=== PATIENT | female | born 1990 | race Two or more races ===

== ENCOUNTER 2016-06-07 19:51 | Emergency (ER) | payer BC ==
[~2016-06-07] VITALS: Ht 162.6 cm; Wt 72.6 kg
[~2016-06-07 19:51] MED LIST: METH-37 PO; TRAM-29 PO
[2016-06-07 20:30] LABS: BILIRUBIN,URINE NEGATIVE (NEG); GLUCOSE,URINE NEGATIVE (NEG); NITRITE,URINE NEGATIVE (NEG); PH,URINE 5.5; PROTEIN,URINE NEGATIVE (NEG-TRACE); UROBILINOGEN,URINE 0.2 mg/dL (0.2 mg/dL)
[2016-06-07 20:44] LABS: RBC,URINE OCC /HPF (0-2)
[2016-06-07 20:45] LABS: BACTERIA,URINE MANY /HPF (0-FEW); SQUAMOUS EPITHELIAL CELL,UR MANY /LPF; WBC,URINE 20-40 /HPF (0-4)
[2016-06-07] MEDS ORDERED: FENTANYL PF 100 MCG/2 ML VIAL. IV ONE ×2 (20:45→22:30)
[2016-06-07] MEDS ORDERED: IV NORMAL SALINE 1000ML BAG 1,000 ML IV ONE (20:45)
[2016-06-07 20:54] LABS: BASO % 0 % (0-3); EOS % 3 % (0-3); HEMATOCRIT 46.4 % (36.0-47.0); HEMOGLOBIN 15.3 g/dL (12.0-15.5); LYMPH # 5.2 x10^3/uL (1.0-4.8); LYMPH % 38 % (24-48); MEAN CORPUSCULAR HEMOGLOBIN 29 pg (25-35); MEAN CORPUSCULAR HGB CONC 33 g/dL (31-37); MEAN CORPUSCULAR VOLUME 87 fL (79-100); MONO % 9 % (0-9); NEUT % 51 % (31-73); PLATELET COUNT 480 x10^3/uL (140-400); RED BLOOD COUNT 5.36 x10^6/uL (3.50-5.40); RED CELL DISTRIBUTION WIDTH 13.7 % (11.5-14.5); WHITE BLOOD COUNT 13.8 x10^3/uL (4.0-11.0)
--- NOTE | 2016-06-07 20:58 | PHYS DOC ---
Past Medical History Past Medical History: No Pertinent History Additional Past Medical Histor: scolosis; bulging discs Past Surgical History: Appendectomy Alcohol Use: Occasionally Drug Use: None Adult General Chief Complaint Chief Complaint: ABDOMINAL PAIN HPI HPI 26-year-old female with acute onset of left lower quadrant pain just prior to arrival. Patient states she was having ongoing diarrheal illness last evening. She denies any nausea or vomiting. She rates her pain in the left lower quadrant a 9 out of 10. She has history of appendectomy but no other abdominal surgery. She denies any vaginal bleeding or discharge. She denies any hematuria or dysuria. Review of Systems Review of Systems Constitutional: Denies fever or chills [] Eyes: Denies change in visual acuity, redness, or eye pain [] HENT: Denies nasal congestion or sore throat [] Respiratory: Denies cough or shortness of breath [] Cardiovascular: No additional information not addressed in HPI [] GI: Has abdominal pain, denies nausea, denies vomiting, denies bloody stools, has diarrhea [] : Denies dysuria or hematuria [] Musculoskeletal: Denies back pain or joint pain [] Integument: Denies rash or skin lesions [] Neurologic: Denies headache, focal weakness or sensory changes [] Endocrine: Denies polyuria or polydipsia [] Current Medications Current Medications Current Medications Medications (Trade) Dose Ordered Sig/Le Start Time Stop Time Status Last Admin Dose Admin Ceftriaxone Sodium (Rocephin 1gm Ivpb For Omni) 50 ml @ 100 mls/hr 1X ONCE 06/07/16 23:00 06/07/16 23:29 DC 06/07/16 23:35 100 MLS/HR Fentanyl Citrate (Fentanyl 2ml Vial) 50 mcg 1X ONCE 06/07/16 22:30 06/07/16 22:31 DC 06/07/16 22:30 50 MCG Info 1 each 1 each PRN DAILY PRN 06/07/16 22:30 06/09/16 22:29 Iohexol (Omnipaque 300 Mg/ml) 75 ml 1X ONCE 06/07/16 22:30 06/07/16 22:31 DC 06/07/16 23:09 75 ML Sodium Chloride (Iv Sodium Chloride 0.9% 1000ml Bag) 1,000 ml @ 1,000 mls/hr 1X ONCE 06/07/16 20:45 06/07/16 21:44 DC 06/07/16 20:58 1,000 MLS/HR Allergies Allergies Allergies Coded Allergies Type Severity Reaction Last Updated Verified Penicillins Allergy Intermediate rash 01/30/16 Yes Physical Exam Physical Exam Constitutional: Well developed, well nourished, no acute distress, non-toxic appearance. [] HENT: Normocephalic, atraumatic, bilateral external ears normal, oropharynx moist, no oral exudates, nose normal. [] Eyes: PERRLA, EOMI, conjunctiva normal, no discharge. [] Neck: Normal range of motion, no tenderness, supple, no stridor. [] Cardiovascular:Heart rate regular rhythm, no murmur [] Lungs & Thorax: Bilateral breath sounds clear to auscultation [] Abdomen: Bowel sounds normal, soft, moderate LLQ tenderness, no masses, no pulsatile masses. [] Skin: Warm, dry, no erythema, no rash. [] Back: No tenderness, no CVA tenderness. [] Extremities: No tenderness, no cyanosis, no clubbing, ROM intact, no edema. [] Neurologic: Alert and oriented X 3, normal motor function, normal sensory function, no focal deficits noted. [] Psychologic: Affect normal, judgement normal, mood normal. [] Current Patient Data Vital Signs Vital Signs Date Time Temp Pulse Resp B/P Pulse Ox O2 Delivery O2 Flow Rate FiO2 06/07/16 22:46 112 17 119/79 98 Room Air 06/07/16 19:58 97.4 97.4 Lab Values Laboratory Tests Test 06/07/16 19:55 06/07/16 20:01 Urine Collection Type Unknown Urine Color Yellow Urine Clarity Cloudy Urine pH 5.5 Urine Specific [place] >=1.030 Urine Protein Negativemg/dL (NEG-TRACE) Urine Glucose (UA) Negativemg/dL (NEG) Urine Ketones (Stick) Negativemg/dL (NEG) Urine Blood Trace (NEG) Urine Nitrite Negative (NEG) Urine Bilirubin Negative (NEG) Urine Urobilinogen Dipstick 0.2mg/dL (0.2 mg/dL) Urine Leukocyte Esterase Large (NEG) Urine RBC Occ/HPF (0-2) Urine WBC 20-40/HPF (0-4) Urine Squamous Epithelial Cells Many/LPF Urine Bacteria Many/HPF (0-FEW) Urine Mucus Marked/LPF White Blood Count 13.8x10^3/uL (4.0-11.0) H Red Blood Count 5.36x10^6/uL (3.50-5.40) Hemoglobin 15.3g/dL (12.0-15.5) Hematocrit 46.4% (36.0-47.0) Mean Corpuscular Volume 87fL (79-100) Mean Corpuscular Hemoglobin 29pg (25-35) Mean Corpuscular Hemoglobin Concent 33g/dL (31-37) Red Cell Distribution Width 13.7% (11.5-14.5) Platelet Count 480x10^3/uL (140-400) H Neutrophils (%) (Auto) 51% (31-73) Lymphocytes (%) (Auto) 38% (24-48) Monocytes (%) (Auto) 9% (0-9) Eosinophils (%) (Auto) 3% (0-3) Basophils (%) (Auto) 0% (0-3) Neutrophils # (Auto) 7.0x10^3uL (1.8-7.7) Lymphocytes # (Auto) 5.2x10^3/uL (1.0-4.8) H Monocytes # (Auto) 1.2x10^3/uL (0.0-1.1) H Eosinophils # (Auto) 0.3x10^3/uL (0.0-0.7) Basophils # (Auto) 0.0x10^3/uL (0.0-0.2) Sodium Level 139mmol/L (136-145) Potassium Level 3.4mmol/L (3.5-5.1) L Chloride Level 102mmol/L (98-107) Carbon Dioxide Level 27mmol/L (21-32) Anion Gap 10 (6-14) Blood Urea Nitrogen 10mg/dL (7-20) Creatinine 0.8mg/dL (0.6-1.0) Estimated GFR (Cockcroft-Gault) 86.0 Glucose Level 69mg/dL (70-99) L Calcium Level 9.4mg/dL (8.5-10.1) Laboratory Tests 06/07/16 20:01 Laboratory Tests 06/07/16 20:01 EKG EKG [] Radiology/Procedures Radiology/Procedures CT of the abdomen/pelvis with IV contrast demonstrates the following: No evidence of bowel obstruction or hydronephrosis. Probable nonobstructive right renal stone. Low-attenuation lesions within the right greater than left kidney. Incompletely characterized on this exam. Ultrasound could be helpful to further evaluate to ensure that there is no complex component. Course & Med Decision Making Course & Med Decision Making Pertinent Labs and Imaging studies reviewed. (See chart for details) This 26-year-old female with ongoing left lower quadrant pain will receive a pelvic ultrasound to rule out ovarian torsion. I also obtain IV line and lab to rule out any other acute cause I will be providing her an IV fluid bolus for her ongoing diarrheal illness to rehydrate her and IV fentanyl for her pain. If her pelvic ultrasound is unrevealing I will be also be obtaining a CT scan to rule out any other acute abnormality. At this time the differential is likely ovarian versus diverticulitis versus colitis. Her CT scan does not reveal any acute abnormalities. Patient upon my reassessment has still continued pain in the left lower quadrant after multiple doses of IV fentanyl. A dose of IV rocephin was given for her UTI. I will be discharging her with a course of ciprofloxacin and flagyl to cover for any diverticulitis and her ongoing UTI. I will also be prescribing her a course of pain control and nausea meds. She will follow closely with her primary doctor in the next several days for symptom resolution. Dragon Disclaimer Dragon Disclaimer This electronic medical record was generated, in whole or in part, using a voice recognition dictation system. Departure Departure Impression: Primary Impression: Left lower quadrant abdominal tenderness Disposition: 01 HOME, SELF-CARE Admitting Physician: Other Condition: IMPROVED Referrals: AILYN HUSAIN MD (PCP) Patient Instructions: Abdominal Pain, [id number] Additional Instructions: Please follow up with your primary doctor in the next 2-3 days. Take your antibiotics as prescribed. Return to the ER if you develop any worsening of your symptoms. Scripts Ondansetron Hcl (Zofran)4 Mg Tablet4 Mg PO BID PRN NAUSEA/VOMITING #10 TAB Prov:FERNANDO MILNER DO 06/08/16 Hydrocodone/Apap 5-325 (Blair 5-325 Tablet)1 Each Tablet1 Tab PO PRN Q6HRS PRN PAIN #10 TAB Prov:FERNANDO MILNER DO 06/08/16 Metronidazole (Flagyl)500 Mg Tablet1 Tab PO BID #14 TAB Prov:FERNANDO MILNER DO 06/08/16 Ciprofloxacin Hcl (Cipro)500 Mg Tablet1 Tab PO BID #14 TAB Prov:FERNANDO MILNER DO 06/08/16 FERNANDO MILNER DO Jun 07, 2016 20:58
[2016-06-07 21:08] LABS: CALCIUM 9.4 mg/dL (8.5-10.1); CREATININE 0.8 mg/dL (0.6-1.0); POTASSIUM 3.4 mmol/L (3.5-5.1)
--- NOTE | 2016-06-07 21:33 | RAD ---
Pelvis ultrasound with transvaginal Indication: Left lower quadrant pain. Transabdominal and transvaginal pelvic sonography was performed. The uterus measures 6.6 x 4.1 x 3.5 centimeters. The endometrium is 6 millimeters in thickness. No uterine mass is detected. Patient does have an IUD centered within the endometrium. The right ovary measures 2.9 x 1.6 x 1.4 centimeters and the left ovary measures 2.7 x 1.1 x 1.0 centimeters. There are small follicles bilaterally. There appears to be blood flow to both ovaries. No adnexal mass or free fluid is detected. Impression: Unremarkable transabdominal and transvaginal pelvic ultrasound. Electronically signed by: Elijah Pollock MD (Jun 07, 2016 21:32:05)
[2016-06-07] MEDS ORDERED: CONTRAST GIVEN MC PRN (22:30)
[2016-06-07] MEDS ORDERED: IOHEXOL 300 MG/ML 75 ML VIAL IV ONE (22:30)
[2016-06-07] MEDS ORDERED: CEFTRIAXONE 1GM IVPB FOR OMNI 50 ML IV ONE (23:00)
--- NOTE | 2016-06-08 00:13 | RAD ---
INDICATION: Abdomen pain. COMPARISON: None TECHNIQUE: Axial CT images obtained through the abdomen and pelvis. Intravenous contrast was utilized. One or more of the following individualized dose reduction techniques were utilized for this examination: 1. Automated exposure control; 2. Adjustment of the mA and/or kV according to patient size; 3. Use of iterative reconstruction technique. FINDINGS: Abdominal aorta not aneurysmal. Small hiatal hernia. No intrahepatic bile duct dilation. No peripancreatic edema. Spleen unremarkable. No hydronephrosis. Subcentimeter low-attenuation lesion left kidney. 15 millimeter low-attenuation lesion right kidney. 2 millimeter possible right renal nonobstructive stone. No definite evidence of small bowel obstruction. Bladder unremarkable within limits of CT. Intrauterine device. IMPRESSION: No evidence of bowel obstruction or hydronephrosis. Probable nonobstructive right renal stone. Low-attenuation lesions within the right greater than left kidney. Incompletely characterized on this exam. Ultrasound could be helpful to further evaluate to ensure that there is no complex component. Electronically signed by: Urban Benitez (Jun 08, 2016 00:12:08)
[2016-06-08] MEDS ORDERED: CIPR500T94 PO (00:29)
[2016-06-08] MEDS ORDERED: METR500T PO (00:29)
[2016-06-08] MEDS ORDERED: HYDR-971 PO (00:31)
[2016-06-08] MEDS ORDERED: ONDA4TAB7 PO (00:31)
[2016-06-08 00:32] VITALS: BP 113/66
== END 2016-06-08 00:40 | disposition home or self-care (01) ==
LOC: ER 19:51
DX: R10.32 Left lower quadrant pain (principal); R19.7 Diarrhea, unspecified; Z90.49 Acquired absence of other specified parts of digestive tract; Z88.0 Allergy status to penicillin
CPT/HCPCS: 36415; 74177; 76830; 76856; 80048; 81001; 85027; 87086; 96361; 96365; 96375; 96376; 99285; J0690; J3010; J7030; Q9967

== ENCOUNTER 2016-06-17 16:30 | Inpatient (IN) | payer BC ==
[~2016-06-17] VITALS: Ht 162.6 cm; Wt 79.6 kg
[~2016-06-17 16:30] MED LIST changes: +CIPR500T94 PO; +HYDR-971 PO; +METR500T PO; +ONDA4TAB7 PO
[2016-06-17] MEDS ORDERED: IV NORMAL SALINE 1000ML BAG 1,000 ML IV SCH (18:12)
[2016-06-17] MEDS ORDERED: ONDANSETRON PF 4 MG/2 ML VIAL. IV ONE ×2 (18:15→19:30)
[2016-06-17 18:29] LABS: BASO # 0.1 x10^3/uL (0.0-0.2); BASO % 0 % (0-3); EOS % 1 % (0-3); HEMATOCRIT 46.3 % (36.0-47.0); HEMOGLOBIN 15.7 g/dL (12.0-15.5); LYMPH # 0.8 x10^3/uL (1.0-4.8); LYMPH % 6 % (24-48); MEAN CORPUSCULAR HEMOGLOBIN 28 pg (25-35); MEAN CORPUSCULAR HGB CONC 34 g/dL (31-37); MEAN CORPUSCULAR VOLUME 83 fL (79-100); MONO % 3 % (0-9); NEUT % 89 % (31-73); PLATELET COUNT 411 x10^3/uL (140-400); RED BLOOD COUNT 5.56 x10^6/uL (3.50-5.40); WHITE BLOOD COUNT 13.6 x10^3/uL (4.0-11.0)
[2016-06-17] MEDS ORDERED: ACETAMINOPHEN 500 MG TABLET PO ONE (18:30)
[2016-06-17] MEDS ORDERED: IOHEXOL 300 MG/ML 75 ML VIAL IV ONE (18:30)
[2016-06-17 18:38] LABS: CALCIUM 8.9 mg/dL (8.5-10.1); CREATININE 0.7 mg/dL (0.6-1.0); GFR 100.4; POTASSIUM 3.9 mmol/L (3.5-5.1)
[2016-06-17 18:43] LABS: ALBUMIN 3.7 g/dL (3.4-5.0); ALBUMIN/GLOBULIN RATIO 0.8 (1.0-1.7); TOTAL BILIRUBIN 0.3 mg/dL (0.2-1.0); TOTAL PROTEIN 8.2 g/dL (6.4-8.2)
[2016-06-17] MEDS: FENTANYL PF 100 MCG/2 ML VIAL. IV PRN ×4 (18:43→20:55)
--- NOTE | 2016-06-17 18:47 | EKG ---
[facility] [address] [place] [address] Test Date: 2016-06-17 Test Time: 18:25:02 Pat Name: ZAHRA PEREZ Department: Room: Gender: Female [employer] Tender: : 1990 Requested By: SANNA ALEXANDRA Order Number: [id number] Reading MD: Shira Cesar Measurements Intervals [place] Rate: 154 P: [place]: QRS: 41 QRSD: 68 T: 61 QT: 296 QTc: 477 Interpretive Statements SINUS TACHYCARDIA NO SPECIFIC ECG ABNORMALITIES RI6.01 No previous ECG available for comparison Electronically Signed On 06-20-2016 18:16:46 SOFTWARE SALES CONSULTANT by Shira Cesar
[2016-06-17 19:02] LABS: OBC FLU VALID
--- NOTE | 2016-06-17 19:29 | RAD ---
PQRS STATEMENT One or more of the following individualized dose reduction techniques were utilized for this study: 1.Automated exposure control. 2.Adjustment of the mA and/orkVaccording to patient size. 3.Use of iterative reconstruction technique. Indication:abd pain, more lt sd, hx colitis,hx appendectomy, prior 10 days ago, same symptoms Reason: Abd pain/hx colitis on abx / Spl. Instructions: / History: Comparison: CT abdomen pelvis from June 07, 2016 Technique: multiple contiguous axial images were obtained through the abdomen and pelvis after intravenous administration of iodinated contrast. Coronal and sagittal reformations were created. Findings: The lung bases are clear. The heart size is normal. The liver is normal in size with no focal lesions identified. The gallbladder is nondistended. The pancreas is unremarkable. The spleen and adrenal glands are within normal limits. The kidneys demonstrate an unchanged probable 3 millimeter calculus in the inferior pole of the right kidney and presumed bilateral renal cysts. The abdominal aorta is normal in caliber. There is no ascites or adenopathy. The appendix is not identified. The bowel loops are normal in caliber. The urinary bladder is within normal limits. No destructive osseous lesion is identified. An intrauterine contraceptive device is in place. Impression: - No ascites or inflammatory mass. - Nonvisualization of the appendix. - Negative for evidence of obstructive uropathy. - Nonobstructive 3 millimeter right nephrolithiasis. Electronically signed by: Robert Giordano (Jun 17, 2016 19:28:04)
[2016-06-17 19:43] LABS: % BASOS 1 % (0-3); % EOS 1 % (0-5)
[2016-06-17 19:47] LABS: PLT ESTIMATE ADEQUATE (ADEQUATE); TOXIC GRANULATION SLIGHT
[2016-06-17 19:55] LABS: BILIRUBIN,URINE NEGATIVE (NEG); GLUCOSE,URINE NEGATIVE (NEG); NITRITE,URINE NEGATIVE (NEG); PH,URINE 7.5; PROTEIN,URINE NEGATIVE (NEG-TRACE); UROBILINOGEN,URINE 0.2 mg/dL (0.2 mg/dL)
[2016-06-17 20:05] LABS: BACTERIA,URINE FEW /HPF (0-FEW); RBC,URINE 0 /HPF (0-2); SQUAMOUS EPITHELIAL CELL,UR MANY /LPF
[2016-06-17 20:09] LABS: BARBITURATES NEG (NEG); BENZODIAZEPINES NEG (NEG); CANNABINOIDS NEG (NEG); COCAINE NEG (NEG); METHADONE NEG (NEG); OPIATES NEG (NEG); PHENCYCLIDINE NEG (NEG)
[2016-06-17 20:16] LABS: ETHANOL, URINE NEG (NEG)
[2016-06-17] MEDS: IV NORMAL SALINE 1000ML BAG 1,000 ML IV SCH ×4 (20:19→23:18)
[2016-06-17] MEDS ORDERED: CEFTRIAXONE 1GM IVPB FOR OMNI 50 ML IV ONE (20:30)
[2016-06-17] MEDS ORDERED: METRONIDAZOLE 500mg PREMIX 100 ML IV ONE (20:30)
[2016-06-17] MEDS ORDERED: MORPHINE SULFATE 4 MG/ML DISP.SYRIN. IV/SQ PRN (21:45)
[2016-06-17] MEDS ORDERED: ONDANSETRON PF 4 MG/2 ML VIAL. IV PRN (22:30)
[2016-06-17] MEDS ORDERED: TRAMADOL 50 MG TABLET. PO PRN (22:45)
[2016-06-17] MEDS ORDERED: ONDANSETRON ODT 4 MG TAB.RAPDIS PO PRN (22:45)
[2016-06-17 23:00] VITALS: BP_SYST 125; BP_SYST 142; BP_DIAS 73; BP_DIAS 77
[2016-06-17] MEDS: HYDROCODONE/APAP 5/325MG TABLET. PO PRN (23:41)
[2016-06-18] MEDS ORDERED: TRAMADOL 50 MG TABLET. PO SCH
[2016-06-18] MEDS: MORPHINE SULFATE 2 MG/ML DISP.SYRIN. IV PRN ×6 (01:06→22:11)
--- NOTE | 2016-06-18 01:17 | ED.ADGEN ---
Past Medical History Past Medical History: No Pertinent History Additional Past Medical Histor: scolosis; bulging discs Past Surgical History: Appendectomy Alcohol Use: Occasionally Drug Use: None Adult General Chief Complaint Chief Complaint: ABDOMINAL PAIN HPI HPI Patient is a 26 year old woman, who presents to the emergency department with complaint of left-sided abdominal pain, fever, vomiting, diarrhea. Patient is status post appendectomy. Patient states that she was seen in the emergency department last week, that time she was diagnosed with colitis, and was discharged home with antibiotics. She states that she was STEMI taken antibodies , but with a past several days as felt increasingly ill, multiple episodes of vomiting and diarrhea, and worsening left-sided cramping abdominal pain, which is similar to the pain that brought her to the ED initially. Patient noted be tachycardic upon arriving the ED, heart rate in the 160, she denies any chest pain or shortness breath, difficulty breathing, or respiratory symptoms. Oral temperature is 102.4. Patient denies any sick contacts or exposures, last episode of vomiting and diarrhea occurred about an hour prior to coming to the ED. She is not received any antipyretics in the past 6 hours. Review of Systems Review of Systems Constitutional: Fever and chills. Eyes: Denies change in visual acuity. [] HENT: Denies nasal congestion or sore throat. [] Respiratory: Denies cough or shortness of breath. [] Cardiovascular: Denies chest pain or edema. [] GI: Left lower quadrant abdominal pain associate with nausea, vomiting, diarrhea. No bloody stools or bloody emesis. : Denies dysuria. [] Musculoskeletal: Denies back pain or joint pain. [] Integument: Denies rash. [] Neurologic: Denies headache, focal weakness or sensory changes. [] Endocrine: Denies polyuria or polydipsia. [] Lymphatic: Denies swollen glands. [] Psychiatric: Denies depression or anxiety. [] Current Medications Current Medications Current Medications Medications (Trade) Dose Ordered Sig/Le Start Time Stop Time Status Last Admin Dose Admin Acetaminophen (Tylenol) 1,000 mg 1X ONCE 06/17/16 18:30 06/17/16 18:31 DC 06/17/16 18:43 1,000 MG Fentanyl Citrate (Fentanyl 2ml Vial) 25 mcg PRN Q15MIN PRN 06/17/16 18:15 06/18/16 18:14 06/17/16 20:55 25 MCG Iohexol (Omnipaque 300 Mg/ml) 75 ml 1X ONCE 06/17/16 18:30 06/17/16 18:31 DC 06/17/16 18:30 75 ML Ondansetron HCl (Zofran) 4 mg 1X ONCE 06/17/16 18:15 06/17/16 18:16 DC 06/17/16 18:42 4 MG Ondansetron HCl 4 mg 4 mg 1X ONCE 06/17/16 19:30 06/17/16 19:31 DC 06/17/16 19:54 4 MG Sodium Chloride (Iv Sodium Chloride 0.9% 1000ml Bag) 1,000 ml @ 547.5 mls/ hr Q1H50M 06/17/16 19:27 06/17/16 23:27 DC 06/17/16 23:07 547.5 MLS/HR Allergies Allergies Allergies Coded Allergies Type Severity Reaction Last Updated Verified Penicillins Allergy Intermediate rash 01/30/16 Yes Sulfa (Sulfonamide Antibiotics) Allergy Unknown 06/17/16 Yes piperacillin Allergy Unknown 06/17/16 Yes tazobactam Allergy Unknown 06/17/16 Yes Physical Exam Physical Exam Constitutional: Well developed, well nourished, diaphoretic, appears uncomfortable, non-toxic appearance. [] HENT: Normocephalic, atraumatic, bilateral external ears normal, oropharynx moist, no oral exudates, nose normal. [] Eyes: PERRLA, EOMI, conjunctiva normal, no discharge. [] Neck: Normal range of motion, no tenderness, supple, no stridor. [] Cardiovascular:Heart rate regular rhythm, no murmur, S1, S2, no rubs or gallops , tachycardic. No chest tenderness or crepitus. [] Lungs & Thorax: Bilateral breath sounds clear to auscultation, no wheezing, rhonchi or rales. [] Abdomen: Bowel sounds normal, soft, tenderness to palpation in the left lower quadrant and periumbilical region, left-sided flank pain also noted, positive for voluntary guarding, no rebound, rigidity identified, no masses, no pulsatile masses. [] Skin: Warm, dry, no erythema, no rash. [] Back: No tenderness, positive for left-sided CVA tenderness. Extremities: No tenderness, no cyanosis, no clubbing, ROM intact, no edema. [] Neurologic: Alert and oriented X 3, normal motor function, normal sensory function, no focal deficits noted. [] Psychologic: Affect normal, judgement normal, mood normal. [] Current Patient Data Vital Signs Vital Signs Date Time Temp Pulse Resp B/P Pulse Ox O2 Delivery O2 Flow Rate FiO2 06/17/16 20:06 101.2 101.2 06/17/16 20:00 138 21 119/57 96 06/17/16 19:49 Room Air Lab Values Laboratory Tests Test 06/17/16 17:45 06/17/16 18:15 06/17/16 18:25 Urine Collection Type Void Urine Color Yellow Urine Clarity Clear Urine pH 7.5 Urine Specific [place] 1.025 Urine Protein Negativemg/dL (NEG-TRACE) Urine Glucose (UA) Negativemg/dL (NEG) Urine Ketones (Stick) Negativemg/dL (NEG) Urine Blood Negative (NEG) Urine Nitrite Negative (NEG) Urine Bilirubin Negative (NEG) Urine Urobilinogen Dipstick 0.2mg/dL (0.2 mg/dL) Urine Leukocyte Esterase Negative (NEG) Urine RBC 0/HPF (0-2) Urine WBC 1-4/HPF (0-4) Urine Squamous Epithelial Cells Many/LPF Urine Bacteria Few/HPF (0-FEW) Urine Mucus Marked/LPF Urine Opiates Screen Neg (NEG) Urine Methadone Screen Neg (NEG) Urine Barbiturates Neg (NEG) Urine Phencyclidine Screen Neg (NEG) Urine Amphetamine/Methamphetamine Neg (NEG) Urine Benzodiazepines Screen Neg (NEG) Urine Cocaine Screen Neg (NEG) Urine Cannabinoids Screen Neg (NEG) Urine Ethyl Alcohol Neg (NEG) White Blood Count 13.6x10^3/uL (4.0-11.0) H Red Blood Count 5.56x10^6/uL (3.50-5.40) H Hemoglobin 15.7g/dL (12.0-15.5) H Hematocrit 46.3% (36.0-47.0) Mean Corpuscular Volume 83fL (79-100) Mean Corpuscular Hemoglobin 28pg (25-35) Mean Corpuscular Hemoglobin Concent 34g/dL (31-37) Red Cell Distribution Width 14.0% (11.5-14.5) Platelet Count 411x10^3/uL (140-400) H Neutrophils (%) (Auto) 89% (31-73) H Lymphocytes (%) (Auto) 6% (24-48) L Monocytes (%) (Auto) 3% (0-9) Eosinophils (%) (Auto) 1% (0-3) Basophils (%) (Auto) 0% (0-3) Neutrophils # (Auto) 12.2x10^3uL (1.8-7.7) H Lymphocytes # (Auto) 0.8x10^3/uL (1.0-4.8) L Monocytes # (Auto) 0.4x10^3/uL (0.0-1.1) Eosinophils # (Auto) 0.2x10^3/uL (0.0-0.7) Basophils # (Auto) 0.1x10^3/uL (0.0-0.2) Segmented Neutrophils % 82% (35-66) H Band Neutrophils % 7% (0-9) Lymphocytes % 9% (24-48) L Eosinophils % 1% (0-5) Basophils % 1% (0-3) Toxic Granulation Slight Platelet Estimate Adequate (ADEQUATE) Sodium Level 141mmol/L (136-145) Potassium Level 3.9mmol/L (3.5-5.1) Chloride Level 104mmol/L (98-107) Carbon Dioxide Level 24mmol/L (21-32) Anion Gap 13 (6-14) Blood Urea Nitrogen 12mg/dL (7-20) Creatinine 0.7mg/dL (0.6-1.0) Estimated GFR (Cockcroft-Gault) 100.4 BUN/Creatinine Ratio 17 (6-20) Glucose Level 107mg/dL (70-99) H Calcium Level 8.9mg/dL (8.5-10.1) Total Bilirubin 0.3mg/dL (0.2-1.0) Aspartate Amino Transferase (AST) 12U/L (15-37) L Alanine Aminotransferase (ALT) 21U/L (14-59) Alkaline Phosphatase 96U/L (46-116) Total Protein 8.2g/dL (6.4-8.2) Albumin 3.7g/dL (3.4-5.0) Albumin/Globulin Ratio 0.8 (1.0-1.7) L Lipase 87U/L (73-393) Lactic Acid Level 1.4mmol/L (0.4-2.0) Influenza Type A Antigen Negative (NEGATIVE) Influenza Type B Antigen Negative (NEGATIVE) Laboratory Tests 06/17/16 18:15 Laboratory Tests 06/17/16 18:15 EKG EKG EC: Sinus tachycardia, heart rate 154 bpm, upright axis, QTC of 477, QRS of 68, no ST elevations or depressions, abnormal ECG with tachycardia, otherwise no concerning abnormalities identified. [] As interpreted by me. Radiology/Procedures Radiology/Procedures [] [facility] [address] [place] [address] IMAGING REPORT Signed PATIENT: ZAHRA PEREZ ACCOUNT: [id number] : 1990 LOCATION: ER AGE: 26 SEX: F EXAM STATUS: REG ER ORD. PHYSICIAN: SANNA ALEXANDRA DO REASON: Abd pain/hx colitis on abx PROCEDURE: ABD PELV W/ IV CONTRAST ONLY PQRS STATEMENT One or more of the following individualized dose reduction techniques were utilized for this study: 1.Automated exposure control. 2.Adjustment of the mA and/orkVaccording to patient size. 3.Use of iterative reconstruction technique. Indication:abd pain, more lt sd, hx colitis,hx appendectomy, prior 10 days ago, same symptoms Reason: Abd pain/hx colitis on abx / Spl. Instructions: / History: Comparison: CT abdomen pelvis from June 07, 2016 Technique: multiple contiguous axial images were obtained through the abdomen and pelvis after intravenous administration of iodinated contrast. Coronal and sagittal reformations were created. Findings: The lung bases are clear. The heart size is normal. The liver is normal in size with no focal lesions identified. The gallbladder is nondistended. The pancreas is unremarkable. The spleen and adrenal glands are within normal limits. The kidneys demonstrate an unchanged probable 3 millimeter calculus in the inferior pole of the right kidney and presumed bilateral renal cysts. The abdominal aorta is normal in caliber. There is no ascites or adenopathy. The appendix is not identified. The bowel loops are normal in caliber. The urinary bladder is within normal limits. No destructive osseous lesion is identified. An intrauterine contraceptive device is in place. Impression: - No ascites or inflammatory mass. - Nonvisualization of the appendix. - Negative for evidence of obstructive uropathy. - Nonobstructive 3 millimeter right nephrolithiasis. Electronically signed by: Robert Giordano (Jun 17, 2016 19:28:04) Course & Med Decision Making Course & Med Decision Making Pertinent Labs and Imaging studies reviewed. (See chart for details) Patient with tachycardia hyperpyrexia stated, IV fluids in this or as long the pain medication, antiemetics, heart rate improved to the 120s and 130s, remained in sinus tachycardia, temperature also improved to 100.4 after Tylenol administered. Leukocytosis at 13.6 with a bandemia and a left shift. Urinalysis is unremarkable, test is negative. Repeat CT of abdomen and pelvis obtained after discussion with patient and mother bedside regarding risks versus benefit, although radiation is a factor, with the patient's fever, tachycardia, and report of previous colitis with oral antibiotics being taken in the outpatient setting, they understand the importance of ruling out any acute abdominal normality. CT that and pelvis did not reveal any evidence of acute findings, patient's influenza was negative, patient continues to have abdominal discomfort on the left side, along with tachycardia stated, is agreeable for admission to the hospital for consultation with GI, continued IV antibiotics and IV fluids after discussion with Dr. Perez of internal medicine , patient initiated on IV metronidazole and ceftriaxone in the ED, patient does have a penicillin allergy. Patient resting comfortably at this time, heart rate in the 120s, with fever improved as stated, having received several doses of antiemetics and pain medication in the ED. Patient transferred to floor without issue. Dragon Disclaimer Dragon Disclaimer This electronic medical record was generated, in whole or in part, using a voice recognition dictation system. Departure Impression: Primary Impression: Abdominal pain Additional Impressions: N&V (nausea and vomiting) Tachycardia Hyperpyrexia Disposition: ADMITTED INPATIENT Admitting Physician: Tamica Perez Condition: IMPROVED Problem Qualifiers Primary Impression: Abdominal pain Abdominal location: left lower quadrant Qualified Code: R10.32 - Left lower quadrant pain Additional Impressions: N&V (nausea and vomiting) Vomiting type: unspecified Vomiting Intractability: non-intractable Qualified Code: R11.2 - Nausea with vomiting, unspecified SANNA ALEXANDRA DO Jun 18, 2016 01:18
--- NOTE | 2016-06-18 01:28 | ACF ---
Admission Forms Criteria ABDOMINAL PAIN Clinical Indications for Admission to Inpatient Care (Place 'X' for any and all applicable criteria): Admission is indicated for ANY ONE of the following(1)(2)(3)(4)(5): [ X]I. Inpatient admission required rather than observation care (Also use Abdominal Pain: Observation Care, as appropriate) because of ANY ONE of the following: [ X]a) Severe pain requiring acute inpatient management [ ]b) Identification of etiology/finding that requires inpatient care (eg, aortic dissection, free air) [ ]c) Absent bowel sounds with complete ileus(6) [ ]d) Suspected toxic megacolon [ ]e) Severe electrolyte abnormalities requiring inpatient care [ ]f) High fever or infection requiring inpatient admission as indicated by ANY ONE of following(7)(8): [ ] i) Appropriate outpatient or observational care antimicrobial treatment unavailable, not effective, or not feasible [ ] ii) Documented bacteremia [ ] iii) Temperature > 104.9 degrees F (oral) [ ] iv) T >103.1 F (oral) or < 96.8 F(rectal) that does not respond to all emergency treatment measures [ ]g) Signs of intestinal obstruction [B] [ ]h) Hemodynamic instability [ ]i) IV fluid to replace significant ongoing losses (greater than 3 L/m2 per day) (12)(13) [ ]j) Percutaneous or open drainage (eg, abscess, biliary tract ) procedures [ ]k) Parenteral nutrition regimen that must be implemented on inpatient basis [ ]l) Other condition,treatment or monitoring requiring inpatient admission. [ ]II. Peritoneal signs present [ ]III. Surgery needed that cannot be performed on an ambulatory basis. [ ]IV. Evaluation requires patient to not eat or drink for extended period ( eg, more than 24 hours). [ ]V. Contraindications and/or Inappropriate clinical situations for Observational Care in patients with abdominal pain, when ANY ONE of the following is required: [ ]a) Thorough evaluation is required to prevent catastrophic events due to delays in diagnosing (e.g.Mesenteric ischemia) 1,3 [ ]b) Patient with severe pathology or with chronic symptoms unlikely to improve in the ED stay (3) [ ]. General contraindications and/or Inappropriate clinical situations for Observational Care in patients with abdominal pain, when ANY ONE of the following is required: [ ]a) Prediction of prolongation of LOS based on ANY ONE of the following may be considered as a contraindication for observational care 2, 3, 4, 5, 6, 7, 8, 9, 10, 11 [ ]i) Age > 65 yrs. [ ]ii) Patient arriving by ambulance [ ]iii) Patient with high acuity [ ]iv) Patient requiring vital sign monitoring [ ]v) Patient on IV medication [ ]b) Systolic blood pressures 180mmHg 3,12 [ ]c) Patient with altered mental status including delirium and other alteration of consciousness, (3) [ ]d) Patient whose discharge disposition will be to a residential home or rehabilitation home should not be managed in Emergency Department Observation Unit. CMS rule requires 3 days hospital stay before such placement.3,13 [ ]e) Patient with failure to thrive due to broad array of etiologies 3,16,17 [ ]f) Inability to ambulate 3,14 Extended stay beyond goal length of stay may be needed for(2)(3): [ ]a) Persistent abdominal pain with suspected intra-abdominal process [ ]b) Diagnosed condition requiring continued stay (e.g., pancreatitis, complicated diverticulitis) [ ]c) Surgery (e.g., colectomy) The original [facility] content created by [employer] has been revised. The portions of the content which have been revised are identified through the use of italic text or in bold, and [facility] has neither reviewed nor approved the modified material.All other unmodified content is copyright [facility]. Please see references footnoted in the original [facility] edition 2016 Admission Criteria Met?: Yes CK STEVENS Jun 18, 2016 01:28
[2016-06-18 03:00] VITALS: BP 102/62
--- NOTE | 2016-06-18 03:00 | HP ---
ADMIT DATE: 06/17/2016 CHIEF COMPLAINT: Abdominal pain, palpitations, nausea, back pain. HISTORY OF PRESENT ILLNESS: The patient is a pleasant 26-year-old female who presented with the above chief complaints. Basically, she has been having abdominal pain and back pain. She took some hydrocodone today, but that did not seem to help. Rates her pain at 8/10. She has associated nausea. When she got to the ER, she was also tachycardic into the 160s. We did a CAT scan of her abdomen, which really did not show a whole lot. We suspect she has got some type of viral syndrome or gastroenteritis with dehydration, which caused the reflux tachycardia. We did give her some fluids, her rate down to 130 now. I discussed the case with the ER physician. We suspect she will get better with some more fluids. We are going to admit and give her some empiric antibiotics, some more fluids and consult GI. PAST MEDICAL HISTORY: Depression, anxiety, chronic pain, GERD. ALLERGIES: PENICILLIN, SULFA, TAZOBACTAM. FAMILY HISTORY: Coronary artery disease. SOCIAL HISTORY: She does not drink, smoke or take drugs. MEDICATIONS: Reviewed. She is on Cipro, [place], Robaxin, Flagyl, Zofran, Ultram. REVIEW OF SYSTEMS: GENERAL: No history of weight change, weakness or fevers. SKIN: No bruising, hair changes or rashes. EYES: No blurred, double or loss of vision. NOSE AND THROAT: No history of nosebleeds, hoarseness or sore throat. HEART: No history of palpitations, chest pain or shortness of breath on exertion. LUNGS: Denies cough, hemoptysis, wheezing or shortness of breath. GASTROINTESTINAL: She complains of right upper quadrant pain. GENITOURINARY: No history of frequency, urgency, hesitancy or nocturia. NEUROLOGIC: Denies history of numbness, tingling, tremor or weakness. PSYCHIATRIC: No history of panic, anxiety or depression. ENDOCRINE: No history of heat or cold intolerance, polyuria or polydipsia. EXTREMITIES: Denies muscle weakness, joint pain, pain on walking or stiffness. PHYSICAL EXAMINATION: VITAL SIGNS: Temperature afebrile, pulse currently 110, respirations 20, blood pressure down to 134/65. GENERAL: She is alert, cooperative. She states she is feeling slightly better. HEART: Tachycardic S1, S2 at 110 beats per minute. LUNGS: Clear. ABDOMEN: Soft. Decreased bowel sounds, tender. EXTREMITIES: No edema. SKIN: No rashes. PSYCHIATRIC: She is stable. VASCULAR: Good capillary refill. ENDOCRINE: No thyromegaly. LYMPHATICS: No cervical nodes. HEMATOPOIETIC: No bruising. LABORATORY DATA: White count 13, hemoglobin 15, platelets 411. Electrolytes normal. AST slightly low at 12. Other liver function tests are normal. Urinalysis negative other than 1-4 white cells and a few bacteria. Influenza testing was negative. Drug screen negative. CT of the abdomen, no ascites, negative for obstructive uropathy. There is some nonobstructive 3 mm right kidney stones. ASSESSMENT AND PLAN: Abdominal pain with dehydration, reflux, tachycardia. This seems to be resolving with fluids and she also has a leukocytosis. We will treat with empiric IV antibiotics, IV fluids. Consult GI. Resume her home medicines, p.r.n. antiemetics, repeat her labs in the morning. DELL FATIMA DO DR: LUIZ/margy JOB#: [id number] / [id number]
[2016-06-18] MEDS: METRONIDAZOLE 500mg PREMIX 100 ML IV SCH ×3 (05:49→23:33)
[2016-06-18 07:15] VITALS: BP 103/58
--- NOTE | 2016-06-18 08:05 | RAD ---
Portable AP upright view CXR: Clinical indications: Epigastric pain and cough today. Tachycardia. Comparison: None available. Findings: No acute lung infiltrate or pleural effusion or pulmonary edema or lung mass or pneumothorax is seen. The heart size, pulmonary vasculature, mediastinum and both nelson are unremarkable. Impression: No acute radiographic abnormality is seen.
[2016-06-18] MEDS: TRAMADOL 50 MG TABLET. PO PRN (08:42)
[2016-06-18] MEDS ORDERED: METHOCARBAMOL 500 MG TABLET PO SCH (09:00)
[2016-06-18] MEDS ORDERED: METRONIDAZOLE 500 MG TABLET. PO SCH (09:00)
[2016-06-18] MEDS ORDERED: CIPROFLOXACIN HCL 250 MG TABLET PO SCH (09:00)
--- NOTE | 2016-06-18 09:07 | PDOC2 ---
GI CONSULT Reason For Consult: Abdominal pain HPI: HPI: 26 y/o female admitted through the ER. Reports h/o abdominal pain and diarrhea than began about 2 weeks ago w/o precipitating events. Was seen in [facility] ER 06/07/16, had unremarkable CT and pelv US, discharged w/ Cipro and Flagyl which she took w/ resolution of pain and diarrhea "after a couple days." Pain has recurred w/o diarrhea this time; however, she has had a fever (Tmax 102.4 here) and has been tachycardic. Pain is located in the periumbilical region and comes and goes w/o aggravating or alleviating factors. She is eating okay although has had some intermittent nausea w/ occasional vomiting. Reports two formed stools daily and denies bleeding. H/o occasional reflux somewhat improved w/ Nexium PRN. Recalls previous EGD and colonoscopy w/ Dr. Leidy Goss a couple years ago; unsure of results - ?ulcer. Occasional Advil use for headaches. Labs: WBC 13.6, Hgb 15.7. Is on IV antibiotics. PMH: PMH: headaches, scoliosis, ?PUD, appendectomy FH: Family History: Cancer (thyroid) Social History: Smoke: No ALCOHOL: none Drugs: None ROS: GEN: +fever HEENT: Denies blurred vision, sore throat CV: Denies chest pain RESP: Denies shortness of air, cough GI: Per HPI : Denies hematuria, dysuria ENDO: Denies weight changes NEURO: Denies confusion, dizziness MSK: Denies weakness, joint pain/swelling SKIN: Denies jaundice, pruritus VItals: Vitals: Vital Signs Date Time Temp Pulse Resp B/P Pulse Ox O2 Delivery O2 Flow Rate FiO2 06/18/16 08:42 97 Room Air 06/18/16 07:15 100.8 104 18 103/58 100.8 06/17/16 23:00 Labs: Labs: Laboratory Tests Test 06/17/16 17:45 06/17/16 18:15 06/17/16 18:25 Urine Collection Type Void Urine Color Yellow Urine Clarity Clear Urine pH 7.5 Urine Specific [place] 1.025 Urine Protein Negativemg/dL (NEG-TRACE) Urine Glucose (UA) Negativemg/dL (NEG) Urine Ketones (Stick) Negativemg/dL (NEG) Urine Blood Negative (NEG) Urine Nitrite Negative (NEG) Urine Bilirubin Negative (NEG) Urine Urobilinogen Dipstick 0.2mg/dL (0.2 mg/dL) Urine Leukocyte Esterase Negative (NEG) Urine RBC 0/HPF (0-2) Urine WBC 1-4/HPF (0-4) Urine Squamous Epithelial Cells Many/LPF Urine Bacteria Few/HPF (0-FEW) Urine Mucus Marked/LPF Urine Opiates Screen Neg (NEG) Urine Methadone Screen Neg (NEG) Urine Barbiturates Neg (NEG) Urine Phencyclidine Screen Neg (NEG) Urine Amphetamine/Methamphetamine Neg (NEG) Urine Benzodiazepines Screen Neg (NEG) Urine Cocaine Screen Neg (NEG) Urine Cannabinoids Screen Neg (NEG) Urine Ethyl Alcohol Neg (NEG) White Blood Count 13.6x10^3/uL (4.0-11.0) Red Blood Count 5.56x10^6/uL (3.50-5.40) Hemoglobin 15.7g/dL (12.0-15.5) Hematocrit 46.3% (36.0-47.0) Mean Corpuscular Volume 83fL (79-100) Mean Corpuscular Hemoglobin 28pg (25-35) Mean Corpuscular Hemoglobin Concent 34g/dL (31-37) Red Cell Distribution Width 14.0% (11.5-14.5) Platelet Count 411x10^3/uL (140-400) Neutrophils (%) (Auto) 89% (31-73) Lymphocytes (%) (Auto) 6% (24-48) Monocytes (%) (Auto) 3% (0-9) Eosinophils (%) (Auto) 1% (0-3) Basophils (%) (Auto) 0% (0-3) Neutrophils # (Auto) 12.2x10^3uL (1.8-7.7) Lymphocytes # (Auto) 0.8x10^3/uL (1.0-4.8) Monocytes # (Auto) 0.4x10^3/uL (0.0-1.1) Eosinophils # (Auto) 0.2x10^3/uL (0.0-0.7) Basophils # (Auto) 0.1x10^3/uL (0.0-0.2) Segmented Neutrophils % 82% (35-66) Band Neutrophils % 7% (0-9) Lymphocytes % 9% (24-48) Eosinophils % 1% (0-5) Basophils % 1% (0-3) Toxic Granulation Slight Platelet Estimate Adequate (ADEQUATE) Sodium Level 141mmol/L (136-145) Potassium Level 3.9mmol/L (3.5-5.1) Chloride Level 104mmol/L (98-107) Carbon Dioxide Level 24mmol/L (21-32) Anion Gap 13 (6-14) Blood Urea Nitrogen 12mg/dL (7-20) Creatinine 0.7mg/dL (0.6-1.0) Estimated GFR (Cockcroft-Gault) 100.4 BUN/Creatinine Ratio 17 (6-20) Glucose Level 107mg/dL (70-99) Calcium Level 8.9mg/dL (8.5-10.1) Total Bilirubin 0.3mg/dL (0.2-1.0) Aspartate Amino Transf (AST/SGOT) 12U/L (15-37) Alanine Aminotransferase (ALT/SGPT) 21U/L (14-59) Alkaline Phosphatase 96U/L (46-116) Total Protein 8.2g/dL (6.4-8.2) Albumin 3.7g/dL (3.4-5.0) Albumin/Globulin Ratio 0.8 (1.0-1.7) Lipase 87U/L (73-393) Lactic Acid Level 1.4mmol/L (0.4-2.0) Influenza Type A Antigen Negative (NEGATIVE) Influenza Type B Antigen Negative (NEGATIVE) Allergies: Coded Allergies: Penicillins (Verified Allergy, Intermediate, rash, 01/30/16) Sulfa (Sulfonamide Antibiotics) (Verified Allergy, Unknown, 06/17/16) piperacillin (Verified Allergy, Unknown, 06/17/16) tazobactam (Verified Allergy, Unknown, 06/17/16) Medications: Current Medications Medications (Trade) Dose Ordered Sig/Le Route PRN Reason Start Time Stop Time Status Last Admin Dose Admin Fentanyl Citrate 25 mcg 25 mcg PRN Q15MIN PRN IV PAIN GREATER THAN 3/10 06/17/16 18:15 06/18/16 18:14 06/17/16 20:55 Sodium Chloride (Iv Sodium Chloride 0.9% 1000ml Bag) 1,000 ml @ 1,000 mls/hr Q1H IV 06/17/16 18:12 06/17/16 19:11 DC 06/17/16 18:42 Ondansetron HCl (Zofran) 4 mg 1X ONCE IV 06/17/16 18:15 06/17/16 18:16 DC 06/17/16 18:42 Acetaminophen (Tylenol) 1,000 mg 1X ONCE PO 06/17/16 18:30 06/17/16 18:31 DC 06/17/16 18:43 Iohexol (Omnipaque 300 Mg/ml) 75 ml 1X ONCE IV 06/17/16 18:30 06/17/16 18:31 DC 06/17/16 18:30 Ondansetron HCl 4 mg 4 mg 1X ONCE IV 06/17/16 19:30 06/17/16 19:31 DC 06/17/16 19:54 Sodium Chloride 1,000 ml @ 547.5 mls/ hr Q1H50M IV 06/17/16 19:27 06/17/16 23:27 DC 06/17/16 23:07 Metronidazole 100 ml @ 100 mls/hr Q8HRS IV 06/18/16 06:00 06/18/16 05:49 Metronidazole 100 ml @ 100 mls/hr 1X ONCE IV 06/17/16 20:30 06/17/16 21:29 DC 06/17/16 21:35 Ceftriaxone Sodium (Rocephin 1gm Ivpb For Omni) 50 ml @ 100 mls/hr 1X ONCE IV 06/17/16 20:30 06/17/16 20:59 DC 06/17/16 20:56 Morphine Sulfate 4 mg PRN Q15MIN PRN IV/SQ PAIN GREATER THAN 3/10 06/17/16 21:45 06/18/16 21:44 06/17/16 22:11 Morphine Sulfate 2 mg 2 mg PRN Q2HR PRN IV PAIN 06/17/16 22:30 06/18/16 08:41 Sodium Chloride (Iv Sodium Chloride 0.9% 1000ml Bag) 1,000 ml @ 75 mls/hr Q66D28L IV 06/17/16 22:45 06/17/16 22:45 Ondansetron HCl (Zofran) 4 mg PRN Q6HRS PRN IV NAUSEA/VOMITING 06/17/16 22:30 06/17/16 22:43 Acetaminophen/ Hydrocodone Bitart (Lortab 5/325) 1 tab PRN Q6HRS PRN PO PAIN 06/17/16 22:45 06/17/16 23:41 Metronidazole (Flagyl) 500 mg BID PO 06/18/16 09:00 06/18/16 08:42 Tramadol HCl (Ultram) 50 mg Q6HRS PO 06/18/16 00:00 06/18/16 02:18 DC 06/17/16 23:41 Ciprofloxacin (Cipro) 500 mg BID PO 06/18/16 09:00 06/18/16 08:42 Tramadol HCl (Ultram) 50 mg PRN Q6HRS PRN PO PAIN 06/18/16 02:30 06/18/16 08:42 Imaging: Imaging: CXR 06/17/16 Impression: No acute radiographic abnormality is seen. CT A/P 06/17/16 Impression: - No ascites or inflammatory mass. - Nonvisualization of the appendix. - Negative for evidence of obstructive uropathy. - Nonobstructive 3 [address] neph[address]. CT A/P 06/07/16 IMPRESSION: No evidence of bowel obstruction or hydronephrosis. Probable nonobstructive right renal stone. Low-attenuation lesions within the right greater than left kidney. Incompletely characterized on this exam. Ultrasound could be helpful to further evaluate to ensure that there is no complex component. US 06/07/16 Impression: Unremarkable transabdominal and transvaginal pelvic ultrasound. PE: GEN: NAD HEENT: Atraumatic, PERRL LUNGS: CTAB anteriorly HEART: tachycardic ABD: BS quiet, tenderness most pronounced left of umbilicus and then spreading toward RLQ EXTREMITY: No edema SKIN: No rashes, no jaundice NEURO/PSYCH: A & O 3 A/P: A/P: Abdominal pain -first occurred two weeks ago w/ diarrhea, improved w/ antibiotics -recurred w/ fever (w/o diarrhea) -has had previous colonoscopy, appendectomy -CTs unrevealing GERD, ?PUD -previous EGD w/ ?ulcer -uses Nexium PRN Fever -influenza neg., again on atbx -- Agree w/ antibiotics. Check blood cultures. Will start PPI. Okay to ADAT. MARISOL MALDONADO Jun 18, 2016 09:07
--- NOTE | 2016-06-18 10:04 | PDOC ---
PROGRESS NOTES Chief Complaint Chief Complaint sepsis, likely viral, but GI bacterial enteritis meds started fever, leukocytosis, tachycardia and tachypnea Abdominal pain with dehydration, reflux, fever, myalgia, flu swab neg History of Present Illness History of Present Illness IV fluid supportive care start PPI and carafate GI following I would guess sx could improve quickly Vitals Vitals Vital Signs Date Time Temp Pulse Resp B/P Pulse Ox O2 Delivery O2 Flow Rate FiO2 06/18/16 08:42 97 Room Air 06/18/16 07:15 100.8 104 18 103/58 100.8 06/17/16 23:00 Physical Exam General: Alert, Oriented X3, Cooperative, mild distress Lungs: Clear, Crackles Abdomen: Normal bowel sounds, No hepatosplenomegaly, Other (tender epigastrum, normal sounds) Extremities: No clubbing, No cyanosis, No edema Skin: No rashes, No breakdown, No significant lesion Labs LABS Laboratory Tests Test 06/17/16 17:45 06/17/16 18:15 06/17/16 18:25 Urine Collection Type Void Urine Color Yellow Urine Clarity Clear Urine pH 7.5 Urine Specific [place] 1.025 Urine Protein Negativemg/dL (NEG-TRACE) Urine Glucose (UA) Negativemg/dL (NEG) Urine Ketones (Stick) Negativemg/dL (NEG) Urine Blood Negative (NEG) Urine Nitrite Negative (NEG) Urine Bilirubin Negative (NEG) Urine Urobilinogen Dipstick 0.2mg/dL (0.2 mg/dL) Urine Leukocyte Esterase Negative (NEG) Urine RBC 0/HPF (0-2) Urine WBC 1-4/HPF (0-4) Urine Squamous Epithelial Cells Many/LPF Urine Bacteria Few/HPF (0-FEW) Urine Mucus Marked/LPF Urine Opiates Screen Neg (NEG) Urine Methadone Screen Neg (NEG) Urine Barbiturates Neg (NEG) Urine Phencyclidine Screen Neg (NEG) Urine Amphetamine/Methamphetamine Neg (NEG) Urine Benzodiazepines Screen Neg (NEG) Urine Cocaine Screen Neg (NEG) Urine Cannabinoids Screen Neg (NEG) Urine Ethyl Alcohol Neg (NEG) White Blood Count 13.6x10^3/uL (4.0-11.0) Red Blood Count 5.56x10^6/uL (3.50-5.40) Hemoglobin 15.7g/dL (12.0-15.5) Hematocrit 46.3% (36.0-47.0) Mean Corpuscular Volume 83fL (79-100) Mean Corpuscular Hemoglobin 28pg (25-35) Mean Corpuscular Hemoglobin Concent 34g/dL (31-37) Red Cell Distribution Width 14.0% (11.5-14.5) Platelet Count 411x10^3/uL (140-400) Neutrophils (%) (Auto) 89% (31-73) Lymphocytes (%) (Auto) 6% (24-48) Monocytes (%) (Auto) 3% (0-9) Eosinophils (%) (Auto) 1% (0-3) Basophils (%) (Auto) 0% (0-3) Neutrophils # (Auto) 12.2x10^3uL (1.8-7.7) Lymphocytes # (Auto) 0.8x10^3/uL (1.0-4.8) Monocytes # (Auto) 0.4x10^3/uL (0.0-1.1) Eosinophils # (Auto) 0.2x10^3/uL (0.0-0.7) Basophils # (Auto) 0.1x10^3/uL (0.0-0.2) Segmented Neutrophils % 82% (35-66) Band Neutrophils % 7% (0-9) Lymphocytes % 9% (24-48) Eosinophils % 1% (0-5) Basophils % 1% (0-3) Toxic Granulation Slight Platelet Estimate Adequate (ADEQUATE) Sodium Level 141mmol/L (136-145) Potassium Level 3.9mmol/L (3.5-5.1) Chloride Level 104mmol/L (98-107) Carbon Dioxide Level 24mmol/L (21-32) Anion Gap 13 (6-14) Blood Urea Nitrogen 12mg/dL (7-20) Creatinine 0.7mg/dL (0.6-1.0) Estimated GFR (Cockcroft-Gault) 100.4 BUN/Creatinine Ratio 17 (6-20) Glucose Level 107mg/dL (70-99) Calcium Level 8.9mg/dL (8.5-10.1) Total Bilirubin 0.3mg/dL (0.2-1.0) Aspartate Amino Transf (AST/SGOT) 12U/L (15-37) Alanine Aminotransferase (ALT/SGPT) 21U/L (14-59) Alkaline Phosphatase 96U/L (46-116) Total Protein 8.2g/dL (6.4-8.2) Albumin 3.7g/dL (3.4-5.0) Albumin/Globulin Ratio 0.8 (1.0-1.7) Lipase 87U/L (73-393) Lactic Acid Level 1.4mmol/L (0.4-2.0) Influenza Type A Antigen Negative (NEGATIVE) Influenza Type B Antigen Negative (NEGATIVE) Review of Systems Review of Systems fever abd pain nausea poor PO intake does not feel well Assessment and Plan Assessmemt and Plan Problems Medical Problems: (1) Abdominal pain Status: Acute (2) Hyperpyrexia Status: Acute (3) N&V (nausea and vomiting) Status: Acute (4) Tachycardia Status: Acute Problems: Comment Review of Relevant I have reviewed the following items yaneth (where applicable) has been applied. Labs Laboratory Tests Test 06/17/16 17:45 06/17/16 18:15 06/17/16 18:25 Urine Collection Type Void Urine Color Yellow Urine Clarity Clear Urine pH 7.5 Urine Specific [place] 1.025 Urine Protein Negativemg/dL (NEG-TRACE) Urine Glucose (UA) Negativemg/dL (NEG) Urine Ketones (Stick) Negativemg/dL (NEG) Urine Blood Negative (NEG) Urine Nitrite Negative (NEG) Urine Bilirubin Negative (NEG) Urine Urobilinogen Dipstick 0.2mg/dL (0.2 mg/dL) Urine Leukocyte Esterase Negative (NEG) Urine RBC 0/HPF (0-2) Urine WBC 1-4/HPF (0-4) Urine Squamous Epithelial Cells Many/LPF Urine Bacteria Few/HPF (0-FEW) Urine Mucus Marked/LPF Urine Opiates Screen Neg (NEG) Urine Methadone Screen Neg (NEG) Urine Barbiturates Neg (NEG) Urine Phencyclidine Screen Neg (NEG) Urine Amphetamine/Methamphetamine Neg (NEG) Urine Benzodiazepines Screen Neg (NEG) Urine Cocaine Screen Neg (NEG) Urine Cannabinoids Screen Neg (NEG) Urine Ethyl Alcohol Neg (NEG) White Blood Count 13.6x10^3/uL (4.0-11.0) Red Blood Count 5.56x10^6/uL (3.50-5.40) Hemoglobin 15.7g/dL (12.0-15.5) Hematocrit 46.3% (36.0-47.0) Mean Corpuscular Volume 83fL (79-100) Mean Corpuscular Hemoglobin 28pg (25-35) Mean Corpuscular Hemoglobin Concent 34g/dL (31-37) Red Cell Distribution Width 14.0% (11.5-14.5) Platelet Count 411x10^3/uL (140-400) Neutrophils (%) (Auto) 89% (31-73) Lymphocytes (%) (Auto) 6% (24-48) Monocytes (%) (Auto) 3% (0-9) Eosinophils (%) (Auto) 1% (0-3) Basophils (%) (Auto) 0% (0-3) Neutrophils # (Auto) 12.2x10^3uL (1.8-7.7) Lymphocytes # (Auto) 0.8x10^3/uL (1.0-4.8) Monocytes # (Auto) 0.4x10^3/uL (0.0-1.1) Eosinophils # (Auto) 0.2x10^3/uL (0.0-0.7) Basophils # (Auto) 0.1x10^3/uL (0.0-0.2) Segmented Neutrophils % 82% (35-66) Band Neutrophils % 7% (0-9) Lymphocytes % 9% (24-48) Eosinophils % 1% (0-5) Basophils % 1% (0-3) Toxic Granulation Slight Platelet Estimate Adequate (ADEQUATE) Sodium Level 141mmol/L (136-145) Potassium Level 3.9mmol/L (3.5-5.1) Chloride Level 104mmol/L (98-107) Carbon Dioxide Level 24mmol/L (21-32) Anion Gap 13 (6-14) Blood Urea Nitrogen 12mg/dL (7-20) Creatinine 0.7mg/dL (0.6-1.0) Estimated GFR (Cockcroft-Gault) 100.4 BUN/Creatinine Ratio 17 (6-20) Glucose Level 107mg/dL (70-99) Calcium Level 8.9mg/dL (8.5-10.1) Total Bilirubin 0.3mg/dL (0.2-1.0) Aspartate Amino Transf (AST/SGOT) 12U/L (15-37) Alanine Aminotransferase (ALT/SGPT) 21U/L (14-59) Alkaline Phosphatase 96U/L (46-116) Total Protein 8.2g/dL (6.4-8.2) Albumin 3.7g/dL (3.4-5.0) Albumin/Globulin Ratio 0.8 (1.0-1.7) Lipase 87U/L (73-393) Lactic Acid Level 1.4mmol/L (0.4-2.0) Influenza Type A Antigen Negative (NEGATIVE) Influenza Type B Antigen Negative (NEGATIVE) Laboratory Tests Test 06/17/16 17:45 06/17/16 18:15 06/17/16 18:25 Urine Collection Type Void Urine Color Yellow Urine Clarity Clear Urine pH 7.5 Urine Specific [place] 1.025 Urine Protein Negativemg/dL (NEG-TRACE) Urine Glucose (UA) Negativemg/dL (NEG) Urine Ketones (Stick) Negativemg/dL (NEG) Urine Blood Negative (NEG) Urine Nitrite Negative (NEG) Urine Bilirubin Negative (NEG) Urine Urobilinogen Dipstick 0.2mg/dL (0.2 mg/dL) Urine Leukocyte Esterase Negative (NEG) Urine RBC 0/HPF (0-2) Urine WBC 1-4/HPF (0-4) Urine Squamous Epithelial Cells Many/LPF Urine Bacteria Few/HPF (0-FEW) Urine Mucus Marked/LPF Urine Opiates Screen Neg (NEG) Urine Methadone Screen Neg (NEG) Urine Barbiturates Neg (NEG) Urine Phencyclidine Screen Neg (NEG) Urine Amphetamine/Methamphetamine Neg (NEG) Urine Benzodiazepines Screen Neg (NEG) Urine Cocaine Screen Neg (NEG) Urine Cannabinoids Screen Neg (NEG) Urine Ethyl Alcohol Neg (NEG) White Blood Count 13.6x10^3/uL (4.0-11.0) Red Blood Count 5.56x10^6/uL (3.50-5.40) Hemoglobin 15.7g/dL (12.0-15.5) Hematocrit 46.3% (36.0-47.0) Mean Corpuscular Volume 83fL (79-100) Mean Corpuscular Hemoglobin 28pg (25-35) Mean Corpuscular Hemoglobin Concent 34g/dL (31-37) Red Cell Distribution Width 14.0% (11.5-14.5) Platelet Count 411x10^3/uL (140-400) Neutrophils (%) (Auto) 89% (31-73) Lymphocytes (%) (Auto) 6% (24-48) Monocytes (%) (Auto) 3% (0-9) Eosinophils (%) (Auto) 1% (0-3) Basophils (%) (Auto) 0% (0-3) Neutrophils # (Auto) 12.2x10^3uL (1.8-7.7) Lymphocytes # (Auto) 0.8x10^3/uL (1.0-4.8) Monocytes # (Auto) 0.4x10^3/uL (0.0-1.1) Eosinophils # (Auto) 0.2x10^3/uL (0.0-0.7) Basophils # (Auto) 0.1x10^3/uL (0.0-0.2) Segmented Neutrophils % 82% (35-66) Band Neutrophils % 7% (0-9) Lymphocytes % 9% (24-48) Eosinophils % 1% (0-5) Basophils % 1% (0-3) Toxic Granulation Slight Platelet Estimate Adequate (ADEQUATE) Sodium Level 141mmol/L (136-145) Potassium Level 3.9mmol/L (3.5-5.1) Chloride Level 104mmol/L (98-107) Carbon Dioxide Level 24mmol/L (21-32) Anion Gap 13 (6-14) Blood Urea Nitrogen 12mg/dL (7-20) Creatinine 0.7mg/dL (0.6-1.0) Estimated GFR (Cockcroft-Gault) 100.4 BUN/Creatinine Ratio 17 (6-20) Glucose Level 107mg/dL (70-99) Calcium Level 8.9mg/dL (8.5-10.1) Total Bilirubin 0.3mg/dL (0.2-1.0) Aspartate Amino Transf (AST/SGOT) 12U/L (15-37) Alanine Aminotransferase (ALT/SGPT) 21U/L (14-59) Alkaline Phosphatase 96U/L (46-116) Total Protein 8.2g/dL (6.4-8.2) Albumin 3.7g/dL (3.4-5.0) Albumin/Globulin Ratio 0.8 (1.0-1.7) Lipase 87U/L (73-393) Lactic Acid Level 1.4mmol/L (0.4-2.0) Influenza Type A Antigen Negative (NEGATIVE) Influenza Type B Antigen Negative (NEGATIVE) Medications Current Medications Fentanyl Citrate 25 mcg 25 mcg PRN Q15MIN PRN IV PAIN GREATER THAN 3/10 Last administered on 06/17/16 20:55; Start 06/17/16 at 18:15; Stop 06/18/16 at 18:14 Sodium Chloride (Iv Sodium Chloride 0.9% 1000ml Bag) 1,000 ml @ 1,000 mls/hr Q1H IV Last administered on 06/17/16 18:42; Start 06/17/16 at 18:12; Stop at 19:11; Status DC Ondansetron HCl (Zofran) 4 mg 1X ONCE IV Last administered on 06/17/16 18:42; Start 06/17/16 at 18:15; Stop 06/17/16 at 18:16; Status DC Acetaminophen (Tylenol) 1,000 mg 1X ONCE PO Last administered on 06/17/16 18: 43; Start 06/17/16 at 18:30; Stop 06/17/16 at 18:31; Status DC Iohexol (Omnipaque 300 Mg/ml) 75 ml 1X ONCE IV Last administered on 06/17/16 18:30; Start 06/17/16 at 18:30; Stop 06/17/16 at 18:31; Status DC Ondansetron HCl 4 mg 4 mg 1X ONCE IV Last administered on 06/17/16 19:54; Start 06/17/16 at 19:30; Stop 06/17/16 at 19:31; Status DC Sodium Chloride 1,000 ml @ 547.5 mls/ hr Q1H50M IV Last administered on 23:07; Start 06/17/16 at 19:27; Stop 06/17/16 at 23:27; Status DC Metronidazole 100 ml @ 100 mls/hr Q8HRS IV Last administered on 06/18/16 05: 49; Start 06/18/16 at 06:00 Metronidazole 100 ml @ 100 mls/hr 1X ONCE IV Last administered on 06/17/16 21 :35; Start 06/17/16 at 20:30; Stop 06/17/16 at 21:29; Status DC Ceftriaxone Sodium 50 ml @ 100 mls/hr 1X ONCE IV Last administered on 20:56; Start 06/17/16 at 20:30; Stop 06/17/16 at 20:59; Status DC Ceftriaxone Sodium/Sodium Chloride (Rocephin/Iv Sodium Chloride 0.9% 50ml) 50 ml @ 100 mls/hr Q24H IV ; Start 06/18/16 at 21:00 Morphine Sulfate 4 mg PRN Q15MIN PRN IV/SQ PAIN GREATER THAN 3/10 Last administered on 06/17/16 22:11; Start 06/17/16 at 21:45; Stop 06/18/16 at 21:44 Morphine Sulfate 2 mg 2 mg PRN Q2HR PRN IV PAIN Last administered on 06/18/16 08:41; Start 06/17/16 at 22:30 Sodium Chloride (Iv Sodium Chloride 0.9% 1000ml Bag) 1,000 ml @ 75 mls/hr [id number] IV Last administered on 06/17/16 22:45; Start 06/17/16 at 22:45 Ondansetron HCl (Zofran) 4 mg PRN Q6HRS PRN IV NAUSEA/VOMITING Last administered on 06/17/16 22:43; Start 06/17/16 at 22:30 Acetaminophen/ Hydrocodone Bitart (Lortab 5/325) 1 tab PRN Q6HRS PRN PO PAIN Last administered on 06/17/16 23:41; Start 06/17/16 at 22:45 Methocarbamol (Robaxin) 500 mg QID PO ; Start 06/18/16 at 09:00; Status Cancel Metronidazole (Flagyl) 500 mg BID PO Last administered on 06/18/16 08:42; Start 06/18/16 at 09:00; Stop 06/18/16 at 09:03; Status DC Tramadol HCl (Ultram) 50 mg Q6HRS PO Last administered on 06/17/16 23:41; Start 06/18/16 at 00:00; Stop 06/18/16 at 02:18; Status DC Tramadol HCl (Ultram) 50 mg PRN Q6HRS PRN PO PAIN; Start 06/17/16 at 22:45; Stop 06/18/16 at 02:18; Status DC Ciprofloxacin (Cipro) 500 mg BID PO Last administered on 06/18/16 08:42; Start 06/18/16 at 09:00 Ondansetron HCl (Zofran Odt) 4 mg PRN BID PRN PO NAUSEA/VOMITING; Start at 22:45 Tramadol HCl (Ultram) 50 mg PRN Q6HRS PRN PO PAIN Last administered on 08:42; Start 06/18/16 at 02:30 Pantoprazole Sodium (Protonix) 40 mg DAILYAC PO ; Start 06/18/16 at 09:15 Active Scripts Active Zofran (Ondansetron Hcl) 4 Mg Tablet 4 Mg PO BID PRN [place] 5-325 Tablet (Acetaminophen/Hydrocodone Bitart) 1 Each Tablet 1 Tab PO PRN Q6HRS PRN Flagyl (Metronidazole) 500 Mg Tablet 1 Tab PO BID Cipro (Ciprofloxacin Hcl) 500 Mg Tablet 1 Tab PO BID Ultram (Tramadol Hcl) 50 Mg Tablet 1 Tab PO Q6HRS Ultram (Tramadol Hcl) 50 Mg Tablet 50 Mg PO Q6H PRN Robaxin (Methocarbamol) 500 Mg Tablet 500 Mg PO QID Vitals/I & O Vital Sign - Last 24 Hours 06/17/16 06/17/16 06/17/16 06/17/16 17:38 18:00 18:30 18:43 Temp 100 100.0 Pulse 152 152 152 Resp 10 12 17 B/P 123/67 111/67 111/68 Pulse Ox 97 95 96 O2 Delivery Room Air Room Air Room Air 06/17/16 06/17/16 06/17/16 06/17/16 19:25 19:30 19:49 20:00 Pulse 148 136 138 Resp 19 16 21 B/P 136/68 124/67 119/57 Pulse Ox 95 96 96 O2 Delivery Room Air Room Air 06/17/16 06/17/16 06/17/16 06/17/16 20:06 20:18 20:30 20:55 Temp 101.2 101.2 Pulse 132 Resp 19 B/P 132/62 Pulse Ox 97 O2 Delivery Room Air Room Air 06/17/16 06/17/16 06/17/16 06/17/16 20:55 22:11 23:00 23:00 Temp 102.4 102.4 102.4 102.4 Pulse 134 134 Resp 20 20 B/P 125/73 125/73 Pulse Ox 98 98 O2 Delivery Room Air Room Air Room Air Room Air O2 Flow Rate 06/17/16 06/17/16 06/18/16 06/18/16 23:41 23:41 00:24 00:41 Resp 18 18 Pulse Ox 97 97 97 O2 Delivery Room Air Room Air Room Air 06/18/16 06/18/16 06/18/16 06/18/16 00:41 01:06 02:56 03:00 Temp 100.0 100.0 Pulse 130 Resp 18 18 20 B/P 102/62 Pulse Ox 97 97 97 98 O2 Delivery Room Air Room Air Room Air Room Air 06/18/16 06/18/16 06/18/16 06/18/16 05:49 06:19 07:15 08:41 Temp 100.8 100.8 Pulse 104 Resp 18 18 18 B/P 103/58 Pulse Ox 97 97 97 97 O2 Delivery Room Air Room Air Room Air Room Air 06/18/16 08:42 Pulse Ox 97 O2 Delivery Room Air Intake and Output 06/17/16 06/17/16 06/18/16 15:00 23:00 07:00 Intake Total 2150 ml 600 ml Balance 2150 ml 600 ml ERI AQUINO MD Jun 18, 2016 10:04
[2016-06-18] MEDS ORDERED: ACETAMINOPHEN 325 MG TABLET. PO PRN (10:15)
[2016-06-18] MEDS: PANTOPRAZOLE 40 MG TABLET. PO SCH (10:23)
[2016-06-18 11:20] VITALS: BP 111/77
[2016-06-18] MEDS: IV NORMAL SALINE 1000ML BAG 1,000 ML IV SCH (12:05)
--- NOTE | 2016-06-18 13:07 | PDOC ---
Infectious Disease Note ROS ROS GEN: Denies fevers, chills, sweats HEENT: Denies blurred vision, sore throat CV: Denies chest pain RESP: Denies shortness of air, cough GI: Denies n/v/d NEURO: Denies confusion, dizziness MSK: Denies weakness, joint pain/swelling Vital Sign Vital Signs Vital Signs Date Time Temp Pulse Resp B/P Pulse Ox O2 Delivery O2 Flow Rate FiO2 06/18/16 11:20 99.9 122 20 111/77 98 Room Air 99.9 06/17/16 23:00 Physical Exam PHYSICAL EXAM GENERAL: NAD, Alert HEENT: PERRL, OC/OP NECK: Supple, no JVD, no LN LUNGS: Clear HEART: S1S2, no gallop, no murmur ABD: Soft, NT, no organomegaly, no rebound EXT: No edema, no cyanosis [employer]TR[employer]ER: Alert, oriented x 3, no focal neurologic deficit SKIN: No rash IV: ok Labs Lab Laboratory Tests Test 06/17/16 17:45 06/17/16 17:51 06/17/16 18:15 06/17/16 18:25 Urine Collection Type Void Urine Color Yellow Urine Clarity Clear Urine pH 7.5 Urine Specific [place] 1.025 Urine Protein Negativemg/dL (NEG-TRACE) Urine Glucose (UA) Negativemg/dL (NEG) Urine Ketones (Stick) Negativemg/dL (NEG) Urine Blood Negative (NEG) Urine Nitrite Negative (NEG) Urine Bilirubin Negative (NEG) Urine Urobilinogen Dipstick 0.2mg/dL (0.2 mg/dL) Urine Leukocyte Esterase Negative (NEG) Urine RBC 0/HPF (0-2) Urine WBC 1-4/HPF (0-4) Urine Squamous Epithelial Cells Many/LPF Urine Bacteria Few/HPF (0-FEW) Urine Mucus Marked/LPF Urine Opiates Screen Neg (NEG) Urine Methadone Screen Neg (NEG) Urine Barbiturates Neg (NEG) Urine Phencyclidine Screen Neg (NEG) Urine Amphetamine/Methamphetamine Neg (NEG) Urine Benzodiazepines Screen Neg (NEG) Urine Cocaine Screen Neg (NEG) Urine Cannabinoids Screen Neg (NEG) Urine Ethyl Alcohol Neg (NEG) Bedside Urine HCG, Qualitative Hcg negative (Negative) White Blood Count 13.6x10^3/uL (4.0-11.0) Red Blood Count 5.56x10^6/uL (3.50-5.40) Hemoglobin 15.7g/dL (12.0-15.5) Hematocrit 46.3% (36.0-47.0) Mean Corpuscular Volume 83fL (79-100) Mean Corpuscular Hemoglobin 28pg (25-35) Mean Corpuscular Hemoglobin Concent 34g/dL (31-37) Red Cell Distribution Width 14.0% (11.5-14.5) Platelet Count 411x10^3/uL (140-400) Neutrophils (%) (Auto) 89% (31-73) Lymphocytes (%) (Auto) 6% (24-48) Monocytes (%) (Auto) 3% (0-9) Eosinophils (%) (Auto) 1% (0-3) Basophils (%) (Auto) 0% (0-3) Neutrophils # (Auto) 12.2x10^3uL (1.8-7.7) Lymphocytes # (Auto) 0.8x10^3/uL (1.0-4.8) Monocytes # (Auto) 0.4x10^3/uL (0.0-1.1) Eosinophils # (Auto) 0.2x10^3/uL (0.0-0.7) Basophils # (Auto) 0.1x10^3/uL (0.0-0.2) Segmented Neutrophils % 82% (35-66) Band Neutrophils % 7% (0-9) Lymphocytes % 9% (24-48) Eosinophils % 1% (0-5) Basophils % 1% (0-3) Toxic Granulation Slight Platelet Estimate Adequate (ADEQUATE) Sodium Level 141mmol/L (136-145) Potassium Level 3.9mmol/L (3.5-5.1) Chloride Level 104mmol/L (98-107) Carbon Dioxide Level 24mmol/L (21-32) Anion Gap 13 (6-14) Blood Urea Nitrogen 12mg/dL (7-20) Creatinine 0.7mg/dL (0.6-1.0) Estimated GFR (Cockcroft-Gault) 100.4 BUN/Creatinine Ratio 17 (6-20) Glucose Level 107mg/dL (70-99) Calcium Level 8.9mg/dL (8.5-10.1) Total Bilirubin 0.3mg/dL (0.2-1.0) Aspartate Amino Transf (AST/SGOT) 12U/L (15-37) Alanine Aminotransferase (ALT/SGPT) 21U/L (14-59) Alkaline Phosphatase 96U/L (46-116) Total Protein 8.2g/dL (6.4-8.2) Albumin 3.7g/dL (3.4-5.0) Albumin/Globulin Ratio 0.8 (1.0-1.7) Lipase 87U/L (73-393) Lactic Acid Level 1.4mmol/L (0.4-2.0) Influenza Type A Antigen Negative (NEGATIVE) Influenza Type B Antigen Negative (NEGATIVE) Objective Assessment Fever Bandemia Abd pain - CT and U/S neg but no oral contrast PCN allergy Plan Plan of Care D/c cipro Add po Vanc Check rotavirus F/u c-diff and stool cults F/u labs Await further GI eval d/w family Thank you # [id number] LIELA YING MD Jun 18, 2016 13:07
[2016-06-18] MEDS: VANCOMYCIN 125 MG/2.5 ML ORAL SOLUTION. PO SCH ×3 (14:46→22:11)
--- NOTE | 2016-06-18 14:55 | PDOC2 ---
CONSULT Date of Consult Date of Consult DATE: 06/18/16 TIME: 14:46 Reason for Consult Reason for Consult: Abdominal pain Referring Physician Referring Physician: Chris Identification/Chief Complaint Chief Complaint Abdominal pain Source Source: Patient History of Present Illness Reason for Visit: 26 yo female appears comfortable in bed nursing her baby. She describes left sided abdominal pain for 3 weeks, intially associated with diarrhea, not not any lately. Some nausea and an episode of vomiting, but currently not nauseated. On admission had fever and elevated wbc. Pain is intermittent sharp stabbing just to the left of the umbilicus. Passing flatus Past Medical History Cardiovascular: No pertinent hx Pulmonary: No pertinent hx GI: No pertinent hx Heme/Onc: No pertinent hx Hepatobiliary: No pertinent hx Psych: Anxiety, Depression Rheumatologic: No pertinent hx Infectious disease: No pertinent hx ENT: No pertinent hx Renal/: No pertinent hx Dermatology: No pertinent hx Past Surgical History Past Surgical History: Appendectomy Family History Family History: No Significant Social History No ALCOHOL: none Drugs: None Current Problem List Problem List Problems Medical Problems: (1) Abdominal pain Status: Acute (2) Hyperpyrexia Status: Acute (3) N&V (nausea and vomiting) Status: Acute (4) Tachycardia Status: Acute Current Medications Current Medications Current Medications Fentanyl Citrate 25 mcg 25 mcg PRN Q15MIN PRN IV PAIN GREATER THAN 3/10 Last administered on 06/17/16 20:55; Start 06/17/16 at 18:15; Stop 06/18/16 at 18:14 Sodium Chloride (Iv Sodium Chloride 0.9% 1000ml Bag) 1,000 ml @ 1,000 mls/hr Q1H IV Last administered on 06/17/16 18:42; Start 06/17/16 at 18:12; Stop at 19:11; Status DC Ondansetron HCl (Zofran) 4 mg 1X ONCE IV Last administered on 06/17/16 18:42; Start 06/17/16 at 18:15; Stop 06/17/16 at 18:16; Status DC Acetaminophen (Tylenol) 1,000 mg 1X ONCE PO Last administered on 06/17/16 18: 43; Start 06/17/16 at 18:30; Stop 06/17/16 at 18:31; Status DC Iohexol (Omnipaque 300 Mg/ml) 75 ml 1X ONCE IV Last administered on 06/17/16 18:30; Start 06/17/16 at 18:30; Stop 06/17/16 at 18:31; Status DC Ondansetron HCl 4 mg 4 mg 1X ONCE IV Last administered on 06/17/16 19:54; Start 06/17/16 at 19:30; Stop 06/17/16 at 19:31; Status DC Sodium Chloride 1,000 ml @ 547.5 mls/ hr Q1H50M IV Last administered on 23:07; Start 06/17/16 at 19:27; Stop 06/17/16 at 23:27; Status DC Metronidazole 100 ml @ 100 mls/hr Q8HRS IV Last administered on 06/18/16 14: 34; Start 06/18/16 at 06:00 Metronidazole 100 ml @ 100 mls/hr 1X ONCE IV Last administered on 06/17/16 21 :35; Start 06/17/16 at 20:30; Stop 06/17/16 at 21:29; Status DC Ceftriaxone Sodium 50 ml @ 100 mls/hr 1X ONCE IV Last administered on 20:56; Start 06/17/16 at 20:30; Stop 06/17/16 at 20:59; Status DC Ceftriaxone Sodium/Sodium Chloride (Rocephin/Iv Sodium Chloride 0.9% 50ml) 50 ml @ 100 mls/hr Q24H IV ; Start 06/18/16 at 21:00 Morphine Sulfate 4 mg PRN Q15MIN PRN IV/SQ PAIN GREATER THAN 3/10 Last administered on 06/17/16 22:11; Start 06/17/16 at 21:45; Stop 06/18/16 at 21:44 Morphine Sulfate 2 mg 2 mg PRN Q2HR PRN IV PAIN Last administered on 06/18/16 08:41; Start 06/17/16 at 22:30 Sodium Chloride (Iv Sodium Chloride 0.9% 1000ml Bag) 1,000 ml @ 75 mls/hr [id number] IV Last administered on 06/18/16 12:05; Start 06/17/16 at 22:45 Ondansetron HCl (Zofran) 4 mg PRN Q6HRS PRN IV NAUSEA/VOMITING Last administered on 06/17/16 22:43; Start 06/17/16 at 22:30 Acetaminophen/ Hydrocodone Bitart (Lortab 5/325) 1 tab PRN Q6HRS PRN PO PAIN Last administered on 06/17/16 23:41; Start 06/17/16 at 22:45 Methocarbamol (Robaxin) 500 mg QID PO ; Start 06/18/16 at 09:00; Status Cancel Metronidazole (Flagyl) 500 mg BID PO Last administered on 06/18/16 08:42; Start 06/18/16 at 09:00; Stop 06/18/16 at 09:03; Status DC Tramadol HCl (Ultram) 50 mg Q6HRS PO Last administered on 06/17/16 23:41; Start 06/18/16 at 00:00; Stop 06/18/16 at 02:18; Status DC Tramadol HCl (Ultram) 50 mg PRN Q6HRS PRN PO PAIN; Start 06/17/16 at 22:45; Stop 06/18/16 at 02:18; Status DC Ciprofloxacin (Cipro) 500 mg BID PO Last administered on 06/18/16 08:42; Start 06/18/16 at 09:00; Stop 06/18/16 at 13:07; Status DC Ondansetron HCl (Zofran Odt) 4 mg PRN BID PRN PO NAUSEA/VOMITING Last administered on 06/18/16 10:30; Start 06/17/16 at 22:45 Tramadol HCl (Ultram) 50 mg PRN Q6HRS PRN PO PAIN Last administered on 08:42; Start 06/18/16 at 02:30 Pantoprazole Sodium (Protonix) 40 mg DAILYAC PO Last administered on 06/18/16 10:23; Start 06/18/16 at 09:15 Acetaminophen (Tylenol) 650 mg PRN Q6HRS PRN PO MILD PAIN / TEMP Last administered on 06/18/16 10:23; Start 06/18/16 at 10:15 Vancomycin HCl 125 mg [id number] PO ; Start 06/18/16 at 13:00 Active Scripts Active Zofran (Ondansetron Hcl) 4 Mg Tablet 4 Mg PO BID PRN Mouthcard 5-325 Tablet (Acetaminophen/Hydrocodone Bitart) 1 Each Tablet 1 Tab PO PRN Q6HRS PRN Flagyl (Metronidazole) 500 Mg Tablet 1 Tab PO BID Cipro (Ciprofloxacin Hcl) 500 Mg Tablet 1 Tab PO BID Ultram (Tramadol Hcl) 50 Mg Tablet 1 Tab PO Q6HRS Ultram (Tramadol Hcl) 50 Mg Tablet 50 Mg PO Q6H PRN Robaxin (Methocarbamol) 500 Mg Tablet 500 Mg PO QID Allergies Allergies: Coded Allergies: Penicillins (Verified Allergy, Intermediate, rash, 01/30/16) Sulfa (Sulfonamide Antibiotics) (Verified Allergy, Unknown, 06/17/16) piperacillin (Verified Allergy, Unknown, 06/17/16) tazobactam (Verified Allergy, Unknown, 06/17/16) ROS Gastrointestinal: Yes Abdominal Pain Physical Exam General: Alert, Oriented X3, Cooperative, No acute distress HEENT: Atraumatic Lungs: Clear to auscultation, Normal air movement Heart: Regular rate, No murmurs Abdomen: Normal bowel sounds, Soft, Other (mild TTP mid abdomen gavin umbilical) Extremities: No edema Skin: No significant lesion Neuro: Normal speech Psych/Mental Status: Mental status NL Vitals VITALS Vital Signs Date Time Temp Pulse Resp B/P Pulse Ox O2 Delivery O2 Flow Rate FiO2 06/18/16 11:20 99.9 122 20 111/77 98 Room Air 99.9 06/17/16 23:00 Labs Labs Laboratory Tests Test 06/17/16 17:45 06/17/16 17:51 06/17/16 18:15 06/17/16 18:25 Urine Collection Type Void Urine Color Yellow Urine Clarity Clear Urine pH 7.5 Urine Specific [place] 1.025 Urine Protein Negativemg/dL (NEG-TRACE) Urine Glucose (UA) Negativemg/dL (NEG) Urine Ketones (Stick) Negativemg/dL (NEG) Urine Blood Negative (NEG) Urine Nitrite Negative (NEG) Urine Bilirubin Negative (NEG) Urine Urobilinogen Dipstick 0.2mg/dL (0.2 mg/dL) Urine Leukocyte Esterase Negative (NEG) Urine RBC 0/HPF (0-2) Urine WBC 1-4/HPF (0-4) Urine Squamous Epithelial Cells Many/LPF Urine Bacteria Few/HPF (0-FEW) Urine Mucus Marked/LPF Urine Opiates Screen Neg (NEG) Urine Methadone Screen Neg (NEG) Urine Barbiturates Neg (NEG) Urine Phencyclidine Screen Neg (NEG) Urine Amphetamine/Methamphetamine Neg (NEG) Urine Benzodiazepines Screen Neg (NEG) Urine Cocaine Screen Neg (NEG) Urine Cannabinoids Screen Neg (NEG) Urine Ethyl Alcohol Neg (NEG) Bedside Urine HCG, Qualitative Hcg negative (Negative) White Blood Count 13.6x10^3/uL (4.0-11.0) Red Blood Count 5.56x10^6/uL (3.50-5.40) Hemoglobin 15.7g/dL (12.0-15.5) Hematocrit 46.3% (36.0-47.0) Mean Corpuscular Volume 83fL (79-100) Mean Corpuscular Hemoglobin 28pg (25-35) Mean Corpuscular Hemoglobin Concent 34g/dL (31-37) Red Cell Distribution Width 14.0% (11.5-14.5) Platelet Count 411x10^3/uL (140-400) Neutrophils (%) (Auto) 89% (31-73) Lymphocytes (%) (Auto) 6% (24-48) Monocytes (%) (Auto) 3% (0-9) Eosinophils (%) (Auto) 1% (0-3) Basophils (%) (Auto) 0% (0-3) Neutrophils # (Auto) 12.2x10^3uL (1.8-7.7) Lymphocytes # (Auto) 0.8x10^3/uL (1.0-4.8) Monocytes # (Auto) 0.4x10^3/uL (0.0-1.1) Eosinophils # (Auto) 0.2x10^3/uL (0.0-0.7) Basophils # (Auto) 0.1x10^3/uL (0.0-0.2) Segmented Neutrophils % 82% (35-66) Band Neutrophils % 7% (0-9) Lymphocytes % 9% (24-48) Eosinophils % 1% (0-5) Basophils % 1% (0-3) Toxic Granulation Slight Platelet Estimate Adequate (ADEQUATE) Sodium Level 141mmol/L (136-145) Potassium Level 3.9mmol/L (3.5-5.1) Chloride Level 104mmol/L (98-107) Carbon Dioxide Level 24mmol/L (21-32) Anion Gap 13 (6-14) Blood Urea Nitrogen 12mg/dL (7-20) Creatinine 0.7mg/dL (0.6-1.0) Estimated GFR (Cockcroft-Gault) 100.4 BUN/Creatinine Ratio 17 (6-20) Glucose Level 107mg/dL (70-99) Calcium Level 8.9mg/dL (8.5-10.1) Total Bilirubin 0.3mg/dL (0.2-1.0) Aspartate Amino Transf (AST/SGOT) 12U/L (15-37) Alanine Aminotransferase (ALT/SGPT) 21U/L (14-59) Alkaline Phosphatase 96U/L (46-116) Total Protein 8.2g/dL (6.4-8.2) Albumin 3.7g/dL (3.4-5.0) Albumin/Globulin Ratio 0.8 (1.0-1.7) Lipase 87U/L (73-393) Lactic Acid Level 1.4mmol/L (0.4-2.0) Influenza Type A Antigen Negative (NEGATIVE) Influenza Type B Antigen Negative (NEGATIVE) Laboratory Tests Test 06/17/16 17:45 06/17/16 17:51 06/17/16 18:15 06/17/16 18:25 Urine Collection Type Void Urine Color Yellow Urine Clarity Clear Urine pH 7.5 Urine Specific [place] 1.025 Urine Protein Negativemg/dL (NEG-TRACE) Urine Glucose (UA) Negativemg/dL (NEG) Urine Ketones (Stick) Negativemg/dL (NEG) Urine Blood Negative (NEG) Urine Nitrite Negative (NEG) Urine Bilirubin Negative (NEG) Urine Urobilinogen Dipstick 0.2mg/dL (0.2 mg/dL) Urine Leukocyte Esterase Negative (NEG) Urine RBC 0/HPF (0-2) Urine WBC 1-4/HPF (0-4) Urine Squamous Epithelial Cells Many/LPF Urine Bacteria Few/HPF (0-FEW) Urine Mucus Marked/LPF Urine Opiates Screen Neg (NEG) Urine Methadone Screen Neg (NEG) Urine Barbiturates Neg (NEG) Urine Phencyclidine Screen Neg (NEG) Urine Amphetamine/Methamphetamine Neg (NEG) Urine Benzodiazepines Screen Neg (NEG) Urine Cocaine Screen Neg (NEG) Urine Cannabinoids Screen Neg (NEG) Urine Ethyl Alcohol Neg (NEG) Bedside Urine HCG, Qualitative Hcg negative (Negative) White Blood Count 13.6x10^3/uL (4.0-11.0) Red Blood Count 5.56x10^6/uL (3.50-5.40) Hemoglobin 15.7g/dL (12.0-15.5) Hematocrit 46.3% (36.0-47.0) Mean Corpuscular Volume 83fL (79-100) Mean Corpuscular Hemoglobin 28pg (25-35) Mean Corpuscular Hemoglobin Concent 34g/dL (31-37) Red Cell Distribution Width 14.0% (11.5-14.5) Platelet Count 411x10^3/uL (140-400) Neutrophils (%) (Auto) 89% (31-73) Lymphocytes (%) (Auto) 6% (24-48) Monocytes (%) (Auto) 3% (0-9) Eosinophils (%) (Auto) 1% (0-3) Basophils (%) (Auto) 0% (0-3) Neutrophils # (Auto) 12.2x10^3uL (1.8-7.7) Lymphocytes # (Auto) 0.8x10^3/uL (1.0-4.8) Monocytes # (Auto) 0.4x10^3/uL (0.0-1.1) Eosinophils # (Auto) 0.2x10^3/uL (0.0-0.7) Basophils # (Auto) 0.1x10^3/uL (0.0-0.2) Segmented Neutrophils % 82% (35-66) Band Neutrophils % 7% (0-9) Lymphocytes % 9% (24-48) Eosinophils % 1% (0-5) Basophils % 1% (0-3) Toxic Granulation Slight Platelet Estimate Adequate (ADEQUATE) Sodium Level 141mmol/L (136-145) Potassium Level 3.9mmol/L (3.5-5.1) Chloride Level 104mmol/L (98-107) Carbon Dioxide Level 24mmol/L (21-32) Anion Gap 13 (6-14) Blood Urea Nitrogen 12mg/dL (7-20) Creatinine 0.7mg/dL (0.6-1.0) Estimated GFR (Cockcroft-Gault) 100.4 BUN/Creatinine Ratio 17 (6-20) Glucose Level 107mg/dL (70-99) Calcium Level 8.9mg/dL (8.5-10.1) Total Bilirubin 0.3mg/dL (0.2-1.0) Aspartate Amino Transf (AST/SGOT) 12U/L (15-37) Alanine Aminotransferase (ALT/SGPT) 21U/L (14-59) Alkaline Phosphatase 96U/L (46-116) Total Protein 8.2g/dL (6.4-8.2) Albumin 3.7g/dL (3.4-5.0) Albumin/Globulin Ratio 0.8 (1.0-1.7) Lipase 87U/L (73-393) Lactic Acid Level 1.4mmol/L (0.4-2.0) Influenza Type A Antigen Negative (NEGATIVE) Influenza Type B Antigen Negative (NEGATIVE) Images Images CT showed renal cyst and nonobstructing renal calculi. No ascites no dilated small bowel no inflammation per ct scan of the pancreas, gallbladder, or liver. Assessment/Plan Assessment/Plan Abdominal pain with fever and leukocytosis. No evidence of surgical problem. Agree with GI likely enteritis, most likely infectious. Will follow. GRACE SHORT MD Jun 18, 2016 14:55
[2016-06-18 15:10] VITALS: BP 89/49
[2016-06-18 19:00] VITALS: BP 98/59
[2016-06-18] MEDS: CEFTRIAXONE SODIUM 1 GM in IV NORMAL SALINE 50ML 50 ML IV SCH (22:11)
[2016-06-18 23:00] VITALS: BP 100/54
[2016-06-19] MEDS: MORPHINE SULFATE 2 MG/ML DISP.SYRIN. IV PRN ×3 (00:10→20:05)
[2016-06-19] MEDS: IV NORMAL SALINE 1000ML BAG 1,000 ML IV SCH ×2 (00:11→13:59)
[2016-06-19] MEDS: HYDROCODONE/APAP 5/325MG TABLET. PO PRN ×3 (01:02→18:19)
[2016-06-19] MEDS: METRONIDAZOLE 500mg PREMIX 100 ML IV SCH ×3 (06:00→21:48)
[2016-06-19 06:13] LABS: BASO # 0.1 x10^3/uL (0.0-0.2); BASO % 2 % (0-3); EOS % 10 % (0-3); HEMATOCRIT 39.5 % (36.0-47.0); LYMPH # 2.6 x10^3/uL (1.0-4.8); LYMPH % 41 % (24-48); MEAN CORPUSCULAR HEMOGLOBIN 28 pg (25-35); MEAN CORPUSCULAR HGB CONC 33 g/dL (31-37); MEAN CORPUSCULAR VOLUME 86 fL (79-100); MONO % 15 % (0-9); NEUT % 32 % (31-73); PLATELET COUNT 326 x10^3/uL (140-400); RED CELL DISTRIBUTION WIDTH 13.7 % (11.5-14.5); WHITE BLOOD COUNT 6.3 x10^3/uL (4.0-11.0)
[2016-06-19 07:00] VITALS: BP 120/71
[2016-06-19 07:02] LABS: ALBUMIN/GLOBULIN RATIO 0.8 (1.0-1.7); CALCIUM 8.7 mg/dL (8.5-10.1); CREATININE 0.7 mg/dL (0.6-1.0); GFR 100.4; POTASSIUM 3.4 mmol/L (3.5-5.1); TOTAL BILIRUBIN 0.2 mg/dL (0.2-1.0); TOTAL PROTEIN 6.6 g/dL (6.4-8.2)
[2016-06-19] MEDS: VANCOMYCIN 125 MG/2.5 ML ORAL SOLUTION. PO SCH ×4 (08:52→20:06)
[2016-06-19] MEDS: PANTOPRAZOLE 40 MG TABLET. PO SCH (08:52)
--- NOTE | 2016-06-19 09:18 | PDOC ---
SURGICAL PROGRESS NOTE Subjective Doing much better, no abdominal pain or nausea Vital Signs Vital Signs Date Time Temp Pulse Resp B/P Pulse Ox O2 Delivery O2 Flow Rate FiO2 06/19/16 07:00 97.9 87 20 120/71 99 Room Air 97.9 I&O Intake and Output 06/19/16 07:00 Intake Total 1620 ml Balance 1620 ml Intake Oral 1060 ml IV Total 560 ml # Voids 1 PATIENT HAS A MARIA: No General: Alert, Oriented X3, Cooperative, No acute distress Abdomen: Normal bowel sounds, Soft, No tenderness Labs Laboratory Tests Test 06/17/16 17:45 06/17/16 17:51 06/17/16 18:15 06/17/16 18:25 Urine Collection Type Void Urine Color Yellow Urine Clarity Clear Urine pH 7.5 Urine Specific [place] 1.025 Urine Protein Negativemg/dL (NEG-TRACE) Urine Glucose (UA) Negativemg/dL (NEG) Urine Ketones (Stick) Negativemg/dL (NEG) Urine Blood Negative (NEG) Urine Nitrite Negative (NEG) Urine Bilirubin Negative (NEG) Urine Urobilinogen Dipstick 0.2mg/dL (0.2 mg/dL) Urine Leukocyte Esterase Negative (NEG) Urine RBC 0/HPF (0-2) Urine WBC 1-4/HPF (0-4) Urine Squamous Epithelial Cells Many/LPF Urine Bacteria Few/HPF (0-FEW) Urine Mucus Marked/LPF Urine Opiates Screen Neg (NEG) Urine Methadone Screen Neg (NEG) Urine Barbiturates Neg (NEG) Urine Phencyclidine Screen Neg (NEG) Urine Amphetamine/Methamphetamine Neg (NEG) Urine Benzodiazepines Screen Neg (NEG) Urine Cocaine Screen Neg (NEG) Urine Cannabinoids Screen Neg (NEG) Urine Ethyl Alcohol Neg (NEG) Bedside Urine HCG, Qualitative Hcg negative (Negative) White Blood Count 13.6x10^3/uL (4.0-11.0) Red Blood Count 5.56x10^6/uL (3.50-5.40) Hemoglobin 15.7g/dL (12.0-15.5) Hematocrit 46.3% (36.0-47.0) Mean Corpuscular Volume 83fL (79-100) Mean Corpuscular Hemoglobin 28pg (25-35) Mean Corpuscular Hemoglobin Concent 34g/dL (31-37) Red Cell Distribution Width 14.0% (11.5-14.5) Platelet Count 411x10^3/uL (140-400) Neutrophils (%) (Auto) 89% (31-73) Lymphocytes (%) (Auto) 6% (24-48) Monocytes (%) (Auto) 3% (0-9) Eosinophils (%) (Auto) 1% (0-3) Basophils (%) (Auto) 0% (0-3) Neutrophils # (Auto) 12.2x10^3uL (1.8-7.7) Lymphocytes # (Auto) 0.8x10^3/uL (1.0-4.8) Monocytes # (Auto) 0.4x10^3/uL (0.0-1.1) Eosinophils # (Auto) 0.2x10^3/uL (0.0-0.7) Basophils # (Auto) 0.1x10^3/uL (0.0-0.2) Segmented Neutrophils % 82% (35-66) Band Neutrophils % 7% (0-9) Lymphocytes % 9% (24-48) Eosinophils % 1% (0-5) Basophils % 1% (0-3) Toxic Granulation Slight Platelet Estimate Adequate (ADEQUATE) Sodium Level 141mmol/L (136-145) Potassium Level 3.9mmol/L (3.5-5.1) Chloride Level 104mmol/L (98-107) Carbon Dioxide Level 24mmol/L (21-32) Anion Gap 13 (6-14) Blood Urea Nitrogen 12mg/dL (7-20) Creatinine 0.7mg/dL (0.6-1.0) Estimated GFR (Cockcroft-Gault) 100.4 BUN/Creatinine Ratio 17 (6-20) Glucose Level 107mg/dL (70-99) Calcium Level 8.9mg/dL (8.5-10.1) Total Bilirubin 0.3mg/dL (0.2-1.0) Aspartate Amino Transf (AST/SGOT) 12U/L (15-37) Alanine Aminotransferase (ALT/SGPT) 21U/L (14-59) Alkaline Phosphatase 96U/L (46-116) Total Protein 8.2g/dL (6.4-8.2) Albumin 3.7g/dL (3.4-5.0) Albumin/Globulin Ratio 0.8 (1.0-1.7) Lipase 87U/L (73-393) Lactic Acid Level 1.4mmol/L (0.4-2.0) Influenza Type A Antigen Negative (NEGATIVE) Influenza Type B Antigen Negative (NEGATIVE) Test 06/19/16 05:00 White Blood Count 6.3x10^3/uL (4.0-11.0) Red Blood Count 4.60x10^6/uL (3.50-5.40) Hemoglobin 13.0g/dL (12.0-15.5) Hematocrit 39.5% (36.0-47.0) Mean Corpuscular Volume 86fL (79-100) Mean Corpuscular Hemoglobin 28pg (25-35) Mean Corpuscular Hemoglobin Concent 33g/dL (31-37) Red Cell Distribution Width 13.7% (11.5-14.5) Platelet Count 326x10^3/uL (140-400) Neutrophils (%) (Auto) 32% (31-73) Lymphocytes (%) (Auto) 41% (24-48) Monocytes (%) (Auto) 15% (0-9) Eosinophils (%) (Auto) 10% (0-3) Basophils (%) (Auto) 2% (0-3) Neutrophils # (Auto) 2.0x10^3uL (1.8-7.7) Lymphocytes # (Auto) 2.6x10^3/uL (1.0-4.8) Monocytes # (Auto) 0.9x10^3/uL (0.0-1.1) Eosinophils # (Auto) 0.6x10^3/uL (0.0-0.7) Basophils # (Auto) 0.1x10^3/uL (0.0-0.2) Sodium Level 142mmol/L (136-145) Potassium Level 3.4mmol/L (3.5-5.1) Chloride Level 108mmol/L (98-107) Carbon Dioxide Level 25mmol/L (21-32) Anion Gap 9 (6-14) Blood Urea Nitrogen 6mg/dL (7-20) Creatinine 0.7mg/dL (0.6-1.0) Estimated GFR (Cockcroft-Gault) 100.4 BUN/Creatinine Ratio 9 (6-20) Glucose Level 91mg/dL (70-99) Calcium Level 8.7mg/dL (8.5-10.1) Total Bilirubin 0.2mg/dL (0.2-1.0) Aspartate Amino Transf (AST/SGOT) 14U/L (15-37) Alanine Aminotransferase (ALT/SGPT) 17U/L (14-59) Alkaline Phosphatase 64U/L (46-116) Total Protein 6.6g/dL (6.4-8.2) Albumin 3.0g/dL (3.4-5.0) Albumin/Globulin Ratio 0.8 (1.0-1.7) Laboratory Tests Test 06/19/16 05:00 White Blood Count 6.3x10^3/uL (4.0-11.0) Red Blood Count 4.60x10^6/uL (3.50-5.40) Hemoglobin 13.0g/dL (12.0-15.5) Hematocrit 39.5% (36.0-47.0) Mean Corpuscular Volume 86fL (79-100) Mean Corpuscular Hemoglobin 28pg (25-35) Mean Corpuscular Hemoglobin Concent 33g/dL (31-37) Red Cell Distribution Width 13.7% (11.5-14.5) Platelet Count 326x10^3/uL (140-400) Neutrophils (%) (Auto) 32% (31-73) Lymphocytes (%) (Auto) 41% (24-48) Monocytes (%) (Auto) 15% (0-9) Eosinophils (%) (Auto) 10% (0-3) Basophils (%) (Auto) 2% (0-3) Neutrophils # (Auto) 2.0x10^3uL (1.8-7.7) Lymphocytes # (Auto) 2.6x10^3/uL (1.0-4.8) Monocytes # (Auto) 0.9x10^3/uL (0.0-1.1) Eosinophils # (Auto) 0.6x10^3/uL (0.0-0.7) Basophils # (Auto) 0.1x10^3/uL (0.0-0.2) Sodium Level 142mmol/L (136-145) Potassium Level 3.4mmol/L (3.5-5.1) Chloride Level 108mmol/L (98-107) Carbon Dioxide Level 25mmol/L (21-32) Anion Gap 9 (6-14) Blood Urea Nitrogen 6mg/dL (7-20) Creatinine 0.7mg/dL (0.6-1.0) Estimated GFR (Cockcroft-Gault) 100.4 BUN/Creatinine Ratio 9 (6-20) Glucose Level 91mg/dL (70-99) Calcium Level 8.7mg/dL (8.5-10.1) Total Bilirubin 0.2mg/dL (0.2-1.0) Aspartate Amino Transf (AST/SGOT) 14U/L (15-37) Alanine Aminotransferase (ALT/SGPT) 17U/L (14-59) Alkaline Phosphatase 64U/L (46-116) Total Protein 6.6g/dL (6.4-8.2) Albumin 3.0g/dL (3.4-5.0) Albumin/Globulin Ratio 0.8 (1.0-1.7) Problem List Problems Medical Problems: (1) Abdominal pain Status: Acute (2) Hyperpyrexia Status: Acute (3) N&V (nausea and vomiting) Status: Acute (4) Tachycardia Status: Acute Assessment/Plan Abd pain improved likely viral No surgical indications. Problems: GRACE SHORT MD Jun 19, 2016 09:18
--- NOTE | 2016-06-19 09:29 | PDOC ---
PROGRESS NOTES Chief Complaint Chief Complaint sepsis, likely viral, enteritis, on flagyl fever, leukocytosis, tachycardia and tachypnea - ALL improved today Abdominal pain with dehydration, reflux, fever, myalgia, flu swab neg History of Present Illness History of Present Illness IV fluid supportive care tolerating clear liquid diet she would like to DC soon, but PO intake is poor GI following replace potassium, hypokalemia today Vitals Vitals Vital Signs Date Time Temp Pulse Resp B/P Pulse Ox O2 Delivery O2 Flow Rate FiO2 06/19/16 07:00 97.9 87 20 120/71 99 Room Air 97.9 Physical Exam General: Alert, Oriented X3, Cooperative, No acute distress Heart: Regular rate, No murmurs Lungs: Clear, Crackles Abdomen: Normal bowel sounds, Soft, No tenderness Extremities: No edema Skin: No significant lesion Labs LABS Laboratory Tests Test 06/19/16 05:00 White Blood Count 6.3x10^3/uL (4.0-11.0) Red Blood Count 4.60x10^6/uL (3.50-5.40) Hemoglobin 13.0g/dL (12.0-15.5) Hematocrit 39.5% (36.0-47.0) Mean Corpuscular Volume 86fL (79-100) Mean Corpuscular Hemoglobin 28pg (25-35) Mean Corpuscular Hemoglobin Concent 33g/dL (31-37) Red Cell Distribution Width 13.7% (11.5-14.5) Platelet Count 326x10^3/uL (140-400) Neutrophils (%) (Auto) 32% (31-73) Lymphocytes (%) (Auto) 41% (24-48) Monocytes (%) (Auto) 15% (0-9) Eosinophils (%) (Auto) 10% (0-3) Basophils (%) (Auto) 2% (0-3) Neutrophils # (Auto) 2.0x10^3uL (1.8-7.7) Lymphocytes # (Auto) 2.6x10^3/uL (1.0-4.8) Monocytes # (Auto) 0.9x10^3/uL (0.0-1.1) Eosinophils # (Auto) 0.6x10^3/uL (0.0-0.7) Basophils # (Auto) 0.1x10^3/uL (0.0-0.2) Sodium Level 142mmol/L (136-145) Potassium Level 3.4mmol/L (3.5-5.1) Chloride Level 108mmol/L (98-107) Carbon Dioxide Level 25mmol/L (21-32) Anion Gap 9 (6-14) Blood Urea Nitrogen 6mg/dL (7-20) Creatinine 0.7mg/dL (0.6-1.0) Estimated GFR (Cockcroft-Gault) 100.4 BUN/Creatinine Ratio 9 (6-20) Glucose Level 91mg/dL (70-99) Calcium Level 8.7mg/dL (8.5-10.1) Total Bilirubin 0.2mg/dL (0.2-1.0) Aspartate Amino Transf (AST/SGOT) 14U/L (15-37) Alanine Aminotransferase (ALT/SGPT) 17U/L (14-59) Alkaline Phosphatase 64U/L (46-116) Total Protein 6.6g/dL (6.4-8.2) Albumin 3.0g/dL (3.4-5.0) Albumin/Globulin Ratio 0.8 (1.0-1.7) Assessment and Plan Assessmemt and Plan Cx pending no loose stool acute abd shaila improved may be able to DC home tomorrow, Problems Medical Problems: (1) Abdominal pain Status: Acute (2) Hyperpyrexia Status: Acute (3) N&V (nausea and vomiting) Status: Acute (4) Tachycardia Status: Acute Problems: Comment Review of Relevant I have reviewed the following items yaneth (where applicable) has been applied. Labs Laboratory Tests Test 06/17/16 17:45 06/17/16 17:51 06/17/16 18:15 06/17/16 18:25 Urine Collection Type Void Urine Color Yellow Urine Clarity Clear Urine pH 7.5 Urine Specific [place] 1.025 Urine Protein Negativemg/dL (NEG-TRACE) Urine Glucose (UA) Negativemg/dL (NEG) Urine Ketones (Stick) Negativemg/dL (NEG) Urine Blood Negative (NEG) Urine Nitrite Negative (NEG) Urine Bilirubin Negative (NEG) Urine Urobilinogen Dipstick 0.2mg/dL (0.2 mg/dL) Urine Leukocyte Esterase Negative (NEG) Urine RBC 0/HPF (0-2) Urine WBC 1-4/HPF (0-4) Urine Squamous Epithelial Cells Many/LPF Urine Bacteria Few/HPF (0-FEW) Urine Mucus Marked/LPF Urine Opiates Screen Neg (NEG) Urine Methadone Screen Neg (NEG) Urine Barbiturates Neg (NEG) Urine Phencyclidine Screen Neg (NEG) Urine Amphetamine/Methamphetamine Neg (NEG) Urine Benzodiazepines Screen Neg (NEG) Urine Cocaine Screen Neg (NEG) Urine Cannabinoids Screen Neg (NEG) Urine Ethyl Alcohol Neg (NEG) Bedside Urine HCG, Qualitative Hcg negative (Negative) White Blood Count 13.6x10^3/uL (4.0-11.0) Red Blood Count 5.56x10^6/uL (3.50-5.40) Hemoglobin 15.7g/dL (12.0-15.5) Hematocrit 46.3% (36.0-47.0) Mean Corpuscular Volume 83fL (79-100) Mean Corpuscular Hemoglobin 28pg (25-35) Mean Corpuscular Hemoglobin Concent 34g/dL (31-37) Red Cell Distribution Width 14.0% (11.5-14.5) Platelet Count 411x10^3/uL (140-400) Neutrophils (%) (Auto) 89% (31-73) Lymphocytes (%) (Auto) 6% (24-48) Monocytes (%) (Auto) 3% (0-9) Eosinophils (%) (Auto) 1% (0-3) Basophils (%) (Auto) 0% (0-3) Neutrophils # (Auto) 12.2x10^3uL (1.8-7.7) Lymphocytes # (Auto) 0.8x10^3/uL (1.0-4.8) Monocytes # (Auto) 0.4x10^3/uL (0.0-1.1) Eosinophils # (Auto) 0.2x10^3/uL (0.0-0.7) Basophils # (Auto) 0.1x10^3/uL (0.0-0.2) Segmented Neutrophils % 82% (35-66) Band Neutrophils % 7% (0-9) Lymphocytes % 9% (24-48) Eosinophils % 1% (0-5) Basophils % 1% (0-3) Toxic Granulation Slight Platelet Estimate Adequate (ADEQUATE) Sodium Level 141mmol/L (136-145) Potassium Level 3.9mmol/L (3.5-5.1) Chloride Level 104mmol/L (98-107) Carbon Dioxide Level 24mmol/L (21-32) Anion Gap 13 (6-14) Blood Urea Nitrogen 12mg/dL (7-20) Creatinine 0.7mg/dL (0.6-1.0) Estimated GFR (Cockcroft-Gault) 100.4 BUN/Creatinine Ratio 17 (6-20) Glucose Level 107mg/dL (70-99) Calcium Level 8.9mg/dL (8.5-10.1) Total Bilirubin 0.3mg/dL (0.2-1.0) Aspartate Amino Transf (AST/SGOT) 12U/L (15-37) Alanine Aminotransferase (ALT/SGPT) 21U/L (14-59) Alkaline Phosphatase 96U/L (46-116) Total Protein 8.2g/dL (6.4-8.2) Albumin 3.7g/dL (3.4-5.0) Albumin/Globulin Ratio 0.8 (1.0-1.7) Lipase 87U/L (73-393) Lactic Acid Level 1.4mmol/L (0.4-2.0) Influenza Type A Antigen Negative (NEGATIVE) Influenza Type B Antigen Negative (NEGATIVE) Test 06/19/16 05:00 White Blood Count 6.3x10^3/uL (4.0-11.0) Red Blood Count 4.60x10^6/uL (3.50-5.40) Hemoglobin 13.0g/dL (12.0-15.5) Hematocrit 39.5% (36.0-47.0) Mean Corpuscular Volume 86fL (79-100) Mean Corpuscular Hemoglobin 28pg (25-35) Mean Corpuscular Hemoglobin Concent 33g/dL (31-37) Red Cell Distribution Width 13.7% (11.5-14.5) Platelet Count 326x10^3/uL (140-400) Neutrophils (%) (Auto) 32% (31-73) Lymphocytes (%) (Auto) 41% (24-48) Monocytes (%) (Auto) 15% (0-9) Eosinophils (%) (Auto) 10% (0-3) Basophils (%) (Auto) 2% (0-3) Neutrophils # (Auto) 2.0x10^3uL (1.8-7.7) Lymphocytes # (Auto) 2.6x10^3/uL (1.0-4.8) Monocytes # (Auto) 0.9x10^3/uL (0.0-1.1) Eosinophils # (Auto) 0.6x10^3/uL (0.0-0.7) Basophils # (Auto) 0.1x10^3/uL (0.0-0.2) Sodium Level 142mmol/L (136-145) Potassium Level 3.4mmol/L (3.5-5.1) Chloride Level 108mmol/L (98-107) Carbon Dioxide Level 25mmol/L (21-32) Anion Gap 9 (6-14) Blood Urea Nitrogen 6mg/dL (7-20) Creatinine 0.7mg/dL (0.6-1.0) Estimated GFR (Cockcroft-Gault) 100.4 BUN/Creatinine Ratio 9 (6-20) Glucose Level 91mg/dL (70-99) Calcium Level 8.7mg/dL (8.5-10.1) Total Bilirubin 0.2mg/dL (0.2-1.0) Aspartate Amino Transf (AST/SGOT) 14U/L (15-37) Alanine Aminotransferase (ALT/SGPT) 17U/L (14-59) Alkaline Phosphatase 64U/L (46-116) Total Protein 6.6g/dL (6.4-8.2) Albumin 3.0g/dL (3.4-5.0) Albumin/Globulin Ratio 0.8 (1.0-1.7) Laboratory Tests Test 06/19/16 05:00 White Blood Count 6.3x10^3/uL (4.0-11.0) Red Blood Count 4.60x10^6/uL (3.50-5.40) Hemoglobin 13.0g/dL (12.0-15.5) Hematocrit 39.5% (36.0-47.0) Mean Corpuscular Volume 86fL (79-100) Mean Corpuscular Hemoglobin 28pg (25-35) Mean Corpuscular Hemoglobin Concent 33g/dL (31-37) Red Cell Distribution Width 13.7% (11.5-14.5) Platelet Count 326x10^3/uL (140-400) Neutrophils (%) (Auto) 32% (31-73) Lymphocytes (%) (Auto) 41% (24-48) Monocytes (%) (Auto) 15% (0-9) Eosinophils (%) (Auto) 10% (0-3) Basophils (%) (Auto) 2% (0-3) Neutrophils # (Auto) 2.0x10^3uL (1.8-7.7) Lymphocytes # (Auto) 2.6x10^3/uL (1.0-4.8) Monocytes # (Auto) 0.9x10^3/uL (0.0-1.1) Eosinophils # (Auto) 0.6x10^3/uL (0.0-0.7) Basophils # (Auto) 0.1x10^3/uL (0.0-0.2) Sodium Level 142mmol/L (136-145) Potassium Level 3.4mmol/L (3.5-5.1) Chloride Level 108mmol/L (98-107) Carbon Dioxide Level 25mmol/L (21-32) Anion Gap 9 (6-14) Blood Urea Nitrogen 6mg/dL (7-20) Creatinine 0.7mg/dL (0.6-1.0) Estimated GFR (Cockcroft-Gault) 100.4 BUN/Creatinine Ratio 9 (6-20) Glucose Level 91mg/dL (70-99) Calcium Level 8.7mg/dL (8.5-10.1) Total Bilirubin 0.2mg/dL (0.2-1.0) Aspartate Amino Transf (AST/SGOT) 14U/L (15-37) Alanine Aminotransferase (ALT/SGPT) 17U/L (14-59) Alkaline Phosphatase 64U/L (46-116) Total Protein 6.6g/dL (6.4-8.2) Albumin 3.0g/dL (3.4-5.0) Albumin/Globulin Ratio 0.8 (1.0-1.7) Microbiology 06/17/16 Blood Culture - Preliminary, Resulted NO GROWTH AFTER 1 DAY Medications Current Medications Fentanyl Citrate 25 mcg 25 mcg PRN Q15MIN PRN IV PAIN GREATER THAN 3/10 Last administered on 06/17/16 20:55; Start 06/17/16 at 18:15; Stop 06/18/16 at 18:14; Status DC Sodium Chloride (Iv Sodium Chloride 0.9% 1000ml Bag) 1,000 ml @ 1,000 mls/hr Q1H IV Last administered on 06/17/16 18:42; Start 06/17/16 at 18:12; Stop at 19:11; Status DC Ondansetron HCl (Zofran) 4 mg 1X ONCE IV Last administered on 06/17/16 18:42; Start 06/17/16 at 18:15; Stop 06/17/16 at 18:16; Status DC Acetaminophen (Tylenol) 1,000 mg 1X ONCE PO Last administered on 06/17/16 18: 43; Start 06/17/16 at 18:30; Stop 06/17/16 at 18:31; Status DC Iohexol (Omnipaque 300 Mg/ml) 75 ml 1X ONCE IV Last administered on 06/17/16 18:30; Start 06/17/16 at 18:30; Stop 06/17/16 at 18:31; Status DC Ondansetron HCl 4 mg 4 mg 1X ONCE IV Last administered on 06/17/16 19:54; Start 06/17/16 at 19:30; Stop 06/17/16 at 19:31; Status DC Sodium Chloride 1,000 ml @ 547.5 mls/ hr Q1H50M IV Last administered on 23:07; Start 06/17/16 at 19:27; Stop 06/17/16 at 23:27; Status DC Metronidazole 100 ml @ 100 mls/hr Q8HRS IV Last administered on 06/19/16 06: 00; Start 06/18/16 at 06:00 Metronidazole 100 ml @ 100 mls/hr 1X ONCE IV Last administered on 06/17/16 21 :35; Start 06/17/16 at 20:30; Stop 06/17/16 at 21:29; Status DC Ceftriaxone Sodium 50 ml @ 100 mls/hr 1X ONCE IV Last administered on 20:56; Start 06/17/16 at 20:30; Stop 06/17/16 at 20:59; Status DC Ceftriaxone Sodium/Sodium Chloride (Rocephin/Iv Sodium Chloride 0.9% 50ml) 50 ml @ 100 mls/hr Q24H IV Last administered on 06/18/16 22:11; Start 06/18/16 at 21:00 Morphine Sulfate 4 mg PRN Q15MIN PRN IV/SQ PAIN GREATER THAN 3/10 Last administered on 06/17/16 22:11; Start 06/17/16 at 21:45; Stop 06/18/16 at 21:44; Status DC Morphine Sulfate 2 mg 2 mg PRN Q2HR PRN IV SEVERE PAIN Last administered on 00:10; Start 06/17/16 at 22:30 Sodium Chloride (Iv Sodium Chloride 0.9% 1000ml Bag) 1,000 ml @ 75 mls/hr [id number] IV Last administered on 06/19/16 00:11; Start 06/17/16 at 22:45 Ondansetron HCl (Zofran) 4 mg PRN Q6HRS PRN IV NAUSEA/VOMITING Last administered on 06/17/16 22:43; Start 06/17/16 at 22:30 Acetaminophen/ Hydrocodone Bitart (Lortab 5/325) 1 tab PRN Q6HRS PRN PO MODERATE PAIN Last administered on 06/19/16 01:02; Start 06/17/16 at 22:45 Methocarbamol (Robaxin) 500 mg QID PO ; Start 06/18/16 at 09:00; Status Cancel Metronidazole (Flagyl) 500 mg BID PO Last administered on 06/18/16 08:42; Start 06/18/16 at 09:00; Stop 06/18/16 at 09:03; Status DC Tramadol HCl (Ultram) 50 mg Q6HRS PO Last administered on 06/17/16 23:41; Start 06/18/16 at 00:00; Stop 06/18/16 at 02:18; Status DC Tramadol HCl (Ultram) 50 mg PRN Q6HRS PRN PO PAIN; Start 06/17/16 at 22:45; Stop 06/18/16 at 02:18; Status DC Ciprofloxacin (Cipro) 500 mg BID PO Last administered on 06/18/16 08:42; Start 06/18/16 at 09:00; Stop 06/18/16 at 13:07; Status DC Ondansetron HCl (Zofran Odt) 4 mg PRN BID PRN PO NAUSEA/VOMITING Last administered on 06/18/16 10:30; Start 06/17/16 at 22:45 Tramadol HCl (Ultram) 50 mg PRN Q6HRS PRN PO MILD PAIN Last administered on 08:42; Start 06/18/16 at 02:30 Pantoprazole Sodium (Protonix) 40 mg DAILYAC PO Last administered on 06/19/16 08:52; Start 06/18/16 at 09:15 Acetaminophen (Tylenol) 650 mg PRN Q6HRS PRN PO MILD PAIN / TEMP Last administered on 06/18/16 10:23; Start 06/18/16 at 10:15 Vancomycin HCl 125 mg [id number] PO Last administered on 06/19/16 08:52; Start at 13:00 Potassium Chloride (Klor-Con) 40 meq 1X ONCE PO ; Start 06/19/16 at 09:30; Stop 06/19/16 at 09:31 Active Scripts Active Zofran (Ondansetron Hcl) 4 Mg Tablet 4 Mg PO BID PRN [place] 5-325 Tablet (Acetaminophen/Hydrocodone Bitart) 1 Each Tablet 1 Tab PO PRN Q6HRS PRN Flagyl (Metronidazole) 500 Mg Tablet 1 Tab PO BID Cipro (Ciprofloxacin Hcl) 500 Mg Tablet 1 Tab PO BID Ultram (Tramadol Hcl) 50 Mg Tablet 1 Tab PO Q6HRS Ultram (Tramadol Hcl) 50 Mg Tablet 50 Mg PO Q6H PRN Robaxin (Methocarbamol) 500 Mg Tablet 500 Mg PO QID Vitals/I & O Vital Sign - Last 24 Hours 06/18/16 06/18/16 06/18/16 06/18/16 09:42 11:20 14:47 15:10 Temp 99.9 99.0 99.9 99.0 Pulse 122 106 Resp 20 18 B/P 111/77 89/49 Pulse Ox 97 98 98 97 O2 Delivery Room Air Room Air Room Air Room Air 06/18/16 06/18/16 06/18/16 06/18/16 15:17 19:00 20:45 22:11 Temp 99.9 99.9 Pulse 80 Resp 18 20 B/P 98/59 Pulse Ox 97 100 O2 Delivery Room Air Room Air Room Air 06/18/16 06/19/16 06/19/16 06/19/16 23:00 00:10 01:02 01:02 Temp 98.1 98.1 Pulse 96 Resp 18 20 20 20 B/P 100/54 Pulse Ox 97 O2 Delivery Room Air Room Air Room Air Room Air 06/19/16 06/19/16 02:15 07:00 Temp 97.9 97.9 Pulse 87 Resp 20 20 B/P 120/71 Pulse Ox 99 O2 Delivery Room Air Room Air Intake and Output 06/18/16 06/18/16 06/19/16 15:00 23:00 07:00 Intake Total 360 ml 0 ml 1260 ml Balance 360 ml 0 ml 1260 ml ERI AQUINO MD Jun 19, 2016 09:29
[2016-06-19] MEDS ORDERED: POTASSIUM CHLORIDE 20 MEQ TABLET.ER. PO ONE (09:30)
[2016-06-19 11:00] VITALS: BP 126/74
[2016-06-19 11:45] LABS: BILIRUBIN,URINE NEGATIVE (NEG); GLUCOSE,URINE NEGATIVE (NEG); NITRITE,URINE NEGATIVE (NEG); PH,URINE 6.5; PROTEIN,URINE NEGATIVE (NEG-TRACE); UROBILINOGEN,URINE 0.2 mg/dL (0.2 mg/dL)
[2016-06-19 11:58] LABS: BACTERIA,URINE 0 /HPF (0-FEW); SQUAMOUS EPITHELIAL CELL,UR MANY /LPF; WBC,URINE OCC /HPF (0-4)
--- NOTE | 2016-06-19 13:20 | PDOC ---
G I PROGRESS NOTE Reason for Follow-up Abd pain/diarrhea Subjective Pain improving as is appetite Physical Exam Lungs clear CV S1 S2 ABD +BS, mild LLQ tenderness Review of Relevant I have reviewed the following items yaneth (where applicable) has been applied. Labs Laboratory Tests Test 06/17/16 17:45 06/17/16 17:51 06/17/16 18:15 06/17/16 18:25 Urine Collection Type Void Urine Color Yellow Urine Clarity Clear Urine pH 7.5 Urine Specific [place] 1.025 Urine Protein Negativemg/dL (NEG-TRACE) Urine Glucose (UA) Negativemg/dL (NEG) Urine Ketones (Stick) Negativemg/dL (NEG) Urine Blood Negative (NEG) Urine Nitrite Negative (NEG) Urine Bilirubin Negative (NEG) Urine Urobilinogen Dipstick 0.2mg/dL (0.2 mg/dL) Urine Leukocyte Esterase Negative (NEG) Urine RBC 0/HPF (0-2) Urine WBC 1-4/HPF (0-4) Urine Squamous Epithelial Cells Many/LPF Urine Bacteria Few/HPF (0-FEW) Urine Mucus Marked/LPF Urine Opiates Screen Neg (NEG) Urine Methadone Screen Neg (NEG) Urine Barbiturates Neg (NEG) Urine Phencyclidine Screen Neg (NEG) Urine Amphetamine/Methamphetamine Neg (NEG) Urine Benzodiazepines Screen Neg (NEG) Urine Cocaine Screen Neg (NEG) Urine Cannabinoids Screen Neg (NEG) Urine Ethyl Alcohol Neg (NEG) Bedside Urine HCG, Qualitative Hcg negative (Negative) White Blood Count 13.6x10^3/uL (4.0-11.0) Red Blood Count 5.56x10^6/uL (3.50-5.40) Hemoglobin 15.7g/dL (12.0-15.5) Hematocrit 46.3% (36.0-47.0) Mean Corpuscular Volume 83fL (79-100) Mean Corpuscular Hemoglobin 28pg (25-35) Mean Corpuscular Hemoglobin Concent 34g/dL (31-37) Red Cell Distribution Width 14.0% (11.5-14.5) Platelet Count 411x10^3/uL (140-400) Neutrophils (%) (Auto) 89% (31-73) Lymphocytes (%) (Auto) 6% (24-48) Monocytes (%) (Auto) 3% (0-9) Eosinophils (%) (Auto) 1% (0-3) Basophils (%) (Auto) 0% (0-3) Neutrophils # (Auto) 12.2x10^3uL (1.8-7.7) Lymphocytes # (Auto) 0.8x10^3/uL (1.0-4.8) Monocytes # (Auto) 0.4x10^3/uL (0.0-1.1) Eosinophils # (Auto) 0.2x10^3/uL (0.0-0.7) Basophils # (Auto) 0.1x10^3/uL (0.0-0.2) Segmented Neutrophils % 82% (35-66) Band Neutrophils % 7% (0-9) Lymphocytes % 9% (24-48) Eosinophils % 1% (0-5) Basophils % 1% (0-3) Toxic Granulation Slight Platelet Estimate Adequate (ADEQUATE) Sodium Level 141mmol/L (136-145) Potassium Level 3.9mmol/L (3.5-5.1) Chloride Level 104mmol/L (98-107) Carbon Dioxide Level 24mmol/L (21-32) Anion Gap 13 (6-14) Blood Urea Nitrogen 12mg/dL (7-20) Creatinine 0.7mg/dL (0.6-1.0) Estimated GFR (Cockcroft-Gault) 100.4 BUN/Creatinine Ratio 17 (6-20) Glucose Level 107mg/dL (70-99) Calcium Level 8.9mg/dL (8.5-10.1) Total Bilirubin 0.3mg/dL (0.2-1.0) Aspartate Amino Transf (AST/SGOT) 12U/L (15-37) Alanine Aminotransferase (ALT/SGPT) 21U/L (14-59) Alkaline Phosphatase 96U/L (46-116) Total Protein 8.2g/dL (6.4-8.2) Albumin 3.7g/dL (3.4-5.0) Albumin/Globulin Ratio 0.8 (1.0-1.7) Lipase 87U/L (73-393) Lactic Acid Level 1.4mmol/L (0.4-2.0) Influenza Type A Antigen Negative (NEGATIVE) Influenza Type B Antigen Negative (NEGATIVE) Test 06/19/16 05:00 06/19/16 10:30 White Blood Count 6.3x10^3/uL (4.0-11.0) Red Blood Count 4.60x10^6/uL (3.50-5.40) Hemoglobin 13.0g/dL (12.0-15.5) Hematocrit 39.5% (36.0-47.0) Mean Corpuscular Volume 86fL (79-100) Mean Corpuscular Hemoglobin 28pg (25-35) Mean Corpuscular Hemoglobin Concent 33g/dL (31-37) Red Cell Distribution Width 13.7% (11.5-14.5) Platelet Count 326x10^3/uL (140-400) Neutrophils (%) (Auto) 32% (31-73) Lymphocytes (%) (Auto) 41% (24-48) Monocytes (%) (Auto) 15% (0-9) Eosinophils (%) (Auto) 10% (0-3) Basophils (%) (Auto) 2% (0-3) Neutrophils # (Auto) 2.0x10^3uL (1.8-7.7) Lymphocytes # (Auto) 2.6x10^3/uL (1.0-4.8) Monocytes # (Auto) 0.9x10^3/uL (0.0-1.1) Eosinophils # (Auto) 0.6x10^3/uL (0.0-0.7) Basophils # (Auto) 0.1x10^3/uL (0.0-0.2) Sodium Level 142mmol/L (136-145) Potassium Level 3.4mmol/L (3.5-5.1) Chloride Level 108mmol/L (98-107) Carbon Dioxide Level 25mmol/L (21-32) Anion Gap 9 (6-14) Blood Urea Nitrogen 6mg/dL (7-20) Creatinine 0.7mg/dL (0.6-1.0) Estimated GFR (Cockcroft-Gault) 100.4 BUN/Creatinine Ratio 9 (6-20) Glucose Level 91mg/dL (70-99) Calcium Level 8.7mg/dL (8.5-10.1) Total Bilirubin 0.2mg/dL (0.2-1.0) Aspartate Amino Transf (AST/SGOT) 14U/L (15-37) Alanine Aminotransferase (ALT/SGPT) 17U/L (14-59) Alkaline Phosphatase 64U/L (46-116) Total Protein 6.6g/dL (6.4-8.2) Albumin 3.0g/dL (3.4-5.0) Albumin/Globulin Ratio 0.8 (1.0-1.7) Urine Collection Type Unknown Urine Color Yellow Urine Clarity Clear Urine pH 6.5 Urine Specific [place] 1.015 Urine Protein Negativemg/dL (NEG-TRACE) Urine Glucose (UA) Negativemg/dL (NEG) Urine Ketones (Stick) 40mg/dL (NEG) Urine Blood Negative (NEG) Urine Nitrite Negative (NEG) Urine Bilirubin Negative (NEG) Urine Urobilinogen Dipstick 0.2mg/dL (0.2 mg/dL) Urine Leukocyte Esterase Trace (NEG) Urine RBC 1-2/HPF (0-2) Urine WBC Occ/HPF (0-4) Urine Squamous Epithelial Cells Many/LPF Urine Bacteria 0/HPF (0-FEW) Laboratory Tests Test 06/19/16 05:00 06/19/16 10:30 White Blood Count 6.3x10^3/uL (4.0-11.0) Red Blood Count 4.60x10^6/uL (3.50-5.40) Hemoglobin 13.0g/dL (12.0-15.5) Hematocrit 39.5% (36.0-47.0) Mean Corpuscular Volume 86fL (79-100) Mean Corpuscular Hemoglobin 28pg (25-35) Mean Corpuscular Hemoglobin Concent 33g/dL (31-37) Red Cell Distribution Width 13.7% (11.5-14.5) Platelet Count 326x10^3/uL (140-400) Neutrophils (%) (Auto) 32% (31-73) Lymphocytes (%) (Auto) 41% (24-48) Monocytes (%) (Auto) 15% (0-9) Eosinophils (%) (Auto) 10% (0-3) Basophils (%) (Auto) 2% (0-3) Neutrophils # (Auto) 2.0x10^3uL (1.8-7.7) Lymphocytes # (Auto) 2.6x10^3/uL (1.0-4.8) Monocytes # (Auto) 0.9x10^3/uL (0.0-1.1) Eosinophils # (Auto) 0.6x10^3/uL (0.0-0.7) Basophils # (Auto) 0.1x10^3/uL (0.0-0.2) Sodium Level 142mmol/L (136-145) Potassium Level 3.4mmol/L (3.5-5.1) Chloride Level 108mmol/L (98-107) Carbon Dioxide Level 25mmol/L (21-32) Anion Gap 9 (6-14) Blood Urea Nitrogen 6mg/dL (7-20) Creatinine 0.7mg/dL (0.6-1.0) Estimated GFR (Cockcroft-Gault) 100.4 BUN/Creatinine Ratio 9 (6-20) Glucose Level 91mg/dL (70-99) Calcium Level 8.7mg/dL (8.5-10.1) Total Bilirubin 0.2mg/dL (0.2-1.0) Aspartate Amino Transf (AST/SGOT) 14U/L (15-37) Alanine Aminotransferase (ALT/SGPT) 17U/L (14-59) Alkaline Phosphatase 64U/L (46-116) Total Protein 6.6g/dL (6.4-8.2) Albumin 3.0g/dL (3.4-5.0) Albumin/Globulin Ratio 0.8 (1.0-1.7) Urine Collection Type Unknown Urine Color Yellow Urine Clarity Clear Urine pH 6.5 Urine Specific [place] 1.015 Urine Protein Negativemg/dL (NEG-TRACE) Urine Glucose (UA) Negativemg/dL (NEG) Urine Ketones (Stick) 40mg/dL (NEG) Urine Blood Negative (NEG) Urine Nitrite Negative (NEG) Urine Bilirubin Negative (NEG) Urine Urobilinogen Dipstick 0.2mg/dL (0.2 mg/dL) Urine Leukocyte Esterase Trace (NEG) Urine RBC 1-2/HPF (0-2) Urine WBC Occ/HPF (0-4) Urine Squamous Epithelial Cells Many/LPF Urine Bacteria 0/HPF (0-FEW) Microbiology 06/17/16 Blood Culture - Preliminary, Resulted NO GROWTH AFTER 1 DAY Medications Current Medications Fentanyl Citrate 25 mcg 25 mcg PRN Q15MIN PRN IV PAIN GREATER THAN 3/10 Last administered on 06/17/16 20:55; Start 06/17/16 at 18:15; Stop 06/18/16 at 18:14; Status DC Sodium Chloride (Iv Sodium Chloride 0.9% 1000ml Bag) 1,000 ml @ 1,000 mls/hr Q1H IV Last administered on 06/17/16 18:42; Start 06/17/16 at 18:12; Stop at 19:11; Status DC Ondansetron HCl (Zofran) 4 mg 1X ONCE IV Last administered on 06/17/16 18:42; Start 06/17/16 at 18:15; Stop 06/17/16 at 18:16; Status DC Acetaminophen (Tylenol) 1,000 mg 1X ONCE PO Last administered on 06/17/16 18: 43; Start 06/17/16 at 18:30; Stop 06/17/16 at 18:31; Status DC Iohexol (Omnipaque 300 Mg/ml) 75 ml 1X ONCE IV Last administered on 06/17/16 18:30; Start 06/17/16 at 18:30; Stop 06/17/16 at 18:31; Status DC Ondansetron HCl 4 mg 4 mg 1X ONCE IV Last administered on 06/17/16 19:54; Start 06/17/16 at 19:30; Stop 06/17/16 at 19:31; Status DC Sodium Chloride 1,000 ml @ 547.5 mls/ hr Q1H50M IV Last administered on 23:07; Start 06/17/16 at 19:27; Stop 06/17/16 at 23:27; Status DC Metronidazole 100 ml @ 100 mls/hr Q8HRS IV Last administered on 06/19/16 06: 00; Start 06/18/16 at 06:00 Metronidazole 100 ml @ 100 mls/hr 1X ONCE IV Last administered on 06/17/16 21 :35; Start 06/17/16 at 20:30; Stop 06/17/16 at 21:29; Status DC Ceftriaxone Sodium 50 ml @ 100 mls/hr 1X ONCE IV Last administered on 20:56; Start 06/17/16 at 20:30; Stop 06/17/16 at 20:59; Status DC Ceftriaxone Sodium/Sodium Chloride (Rocephin/Iv Sodium Chloride 0.9% 50ml) 50 ml @ 100 mls/hr Q24H IV Last administered on 06/18/16 22:11; Start 06/18/16 at 21:00 Morphine Sulfate 4 mg PRN Q15MIN PRN IV/SQ PAIN GREATER THAN 3/10 Last administered on 06/17/16 22:11; Start 06/17/16 at 21:45; Stop 06/18/16 at 21:44; Status DC Morphine Sulfate 2 mg 2 mg PRN Q2HR PRN IV SEVERE PAIN Last administered on 12:13; Start 06/17/16 at 22:30 Sodium Chloride (Iv Sodium Chloride 0.9% 1000ml Bag) 1,000 ml @ 75 mls/hr [id number] IV Last administered on 06/19/16 00:11; Start 06/17/16 at 22:45 Ondansetron HCl (Zofran) 4 mg PRN Q6HRS PRN IV NAUSEA/VOMITING Last administered on 06/17/16 22:43; Start 06/17/16 at 22:30 Acetaminophen/ Hydrocodone Bitart (Lortab 5/325) 1 tab PRN Q6HRS PRN PO MODERATE PAIN Last administered on 06/19/16 10:23; Start 06/17/16 at 22:45 Methocarbamol (Robaxin) 500 mg QID PO ; Start 06/18/16 at 09:00; Status Cancel Metronidazole (Flagyl) 500 mg BID PO Last administered on 06/18/16 08:42; Start 06/18/16 at 09:00; Stop 06/18/16 at 09:03; Status DC Tramadol HCl (Ultram) 50 mg Q6HRS PO Last administered on 06/17/16 23:41; Start 06/18/16 at 00:00; Stop 06/18/16 at 02:18; Status DC Tramadol HCl (Ultram) 50 mg PRN Q6HRS PRN PO PAIN; Start 06/17/16 at 22:45; Stop 06/18/16 at 02:18; Status DC Ciprofloxacin (Cipro) 500 mg BID PO Last administered on 06/18/16 08:42; Start 06/18/16 at 09:00; Stop 06/18/16 at 13:07; Status DC Ondansetron HCl (Zofran Odt) 4 mg PRN BID PRN PO NAUSEA/VOMITING Last administered on 06/18/16 10:30; Start 06/17/16 at 22:45 Tramadol HCl (Ultram) 50 mg PRN Q6HRS PRN PO MILD PAIN Last administered on 08:42; Start 06/18/16 at 02:30 Pantoprazole Sodium (Protonix) 40 mg DAILYAC PO Last administered on 06/19/16 08:52; Start 06/18/16 at 09:15 Acetaminophen (Tylenol) 650 mg PRN Q6HRS PRN PO MILD PAIN / TEMP Last administered on 06/18/16 10:23; Start 06/18/16 at 10:15 Vancomycin HCl 125 mg [id number] PO Last administered on 06/19/16 11:50; Start at 13:00 Potassium Chloride (Klor-Con) 40 meq 1X ONCE PO Last administered on 10:22; Start 06/19/16 at 09:30; Stop 06/19/16 at 09:31; Status DC Active Scripts Active Zofran (Ondansetron Hcl) 4 Mg Tablet 4 Mg PO BID PRN [place] 5-325 Tablet (Acetaminophen/Hydrocodone Bitart) 1 Each Tablet 1 Tab PO PRN Q6HRS PRN Flagyl (Metronidazole) 500 Mg Tablet 1 Tab PO BID Cipro (Ciprofloxacin Hcl) 500 Mg Tablet 1 Tab PO BID Ultram (Tramadol Hcl) 50 Mg Tablet 1 Tab PO Q6HRS Ultram (Tramadol Hcl) 50 Mg Tablet 50 Mg PO Q6H PRN Robaxin (Methocarbamol) 500 Mg Tablet 500 Mg PO QID Vitals/I & O Vital Sign - Last 24 Hours 06/18/16 06/18/16 06/18/16 06/18/16 14:47 15:10 15:17 19:00 Temp 99.0 99.9 99.0 99.9 Pulse 106 80 Resp 18 18 B/P 89/49 98/59 Pulse Ox 98 97 97 100 O2 Delivery Room Air Room Air Room Air 06/18/16 06/18/16 06/18/16 06/19/16 20:45 22:11 23:00 00:10 Temp 98.1 98.1 Pulse 96 Resp 20 18 20 B/P 100/54 Pulse Ox 97 O2 Delivery Room Air Room Air Room Air Room Air 06/19/16 06/19/16 06/19/16 06/19/16 01:02 01:02 02:15 07:00 Temp 97.9 97.9 Pulse 87 Resp 20 20 20 20 B/P 120/71 Pulse Ox 99 O2 Delivery Room Air Room Air Room Air Room Air 06/19/16 06/19/16 06/19/16 06/19/16 08:00 10:23 11:00 12:13 Temp 97.9 97.9 Pulse 94 Resp 20 16 B/P 126/74 Pulse Ox 97 97 O2 Delivery Room Air Room Air Room Air Room Air Intake and Output 06/18/16 06/18/16 06/19/16 15:00 23:00 07:00 Intake Total 360 ml 0 ml 1260 ml Balance 360 ml 0 ml 1260 ml Problem List Problems Medical Problems: (1) Abdominal pain Status: Acute (2) Hyperpyrexia Status: Acute (3) N&V (nausea and vomiting) Status: Acute (4) Tachycardia Status: Acute Assessment LLQ abd pain- most likely infectious enteritis, clinically improving, advance diet and activity as tolerated FERNANDO VIVEROS MD Jun 19, 2016 13:20
--- NOTE | 2016-06-19 13:32 | PDOC ---
Infectious Disease Note Subjective Subjective No fever last 24 hours Feeling better, less abdominal pain + nausea earlier after eating soup, better now Denies diarrhea ROS ROS GEN: Denies chills, sweats CV: Denies chest pain RESP: Denies shortness of air, cough Vital Sign Vital Signs Vital Signs Date Time Temp Pulse Resp B/P Pulse Ox O2 Delivery O2 Flow Rate FiO2 06/19/16 12:43 97 Room Air 06/19/16 11:00 97.9 94 16 126/74 97.9 Physical Exam PHYSICAL EXAM GENERAL: Lying down, nursing 7-month old. HEENT: OC/OP clear LUNGS: Clear HEART: S1S2, no gallop, no murmur ABD: Soft, NT, BS present EXT: No edema, no cyanosis TOOL GRINDING TECHNICIAN: Alert, oriented x 3, no focal neurologic deficit SKIN: No rash IV: ok Labs Lab Laboratory Tests Test 06/19/16 05:00 06/19/16 10:30 White Blood Count 6.3x10^3/uL (4.0-11.0) Red Blood Count 4.60x10^6/uL (3.50-5.40) Hemoglobin 13.0g/dL (12.0-15.5) Hematocrit 39.5% (36.0-47.0) Mean Corpuscular Volume 86fL (79-100) Mean Corpuscular Hemoglobin 28pg (25-35) Mean Corpuscular Hemoglobin Concent 33g/dL (31-37) Red Cell Distribution Width 13.7% (11.5-14.5) Platelet Count 326x10^3/uL (140-400) Neutrophils (%) (Auto) 32% (31-73) Lymphocytes (%) (Auto) 41% (24-48) Monocytes (%) (Auto) 15% (0-9) Eosinophils (%) (Auto) 10% (0-3) Basophils (%) (Auto) 2% (0-3) Neutrophils # (Auto) 2.0x10^3uL (1.8-7.7) Lymphocytes # (Auto) 2.6x10^3/uL (1.0-4.8) Monocytes # (Auto) 0.9x10^3/uL (0.0-1.1) Eosinophils # (Auto) 0.6x10^3/uL (0.0-0.7) Basophils # (Auto) 0.1x10^3/uL (0.0-0.2) Sodium Level 142mmol/L (136-145) Potassium Level 3.4mmol/L (3.5-5.1) Chloride Level 108mmol/L (98-107) Carbon Dioxide Level 25mmol/L (21-32) Anion Gap 9 (6-14) Blood Urea Nitrogen 6mg/dL (7-20) Creatinine 0.7mg/dL (0.6-1.0) Estimated GFR (Cockcroft-Gault) 100.4 BUN/Creatinine Ratio 9 (6-20) Glucose Level 91mg/dL (70-99) Calcium Level 8.7mg/dL (8.5-10.1) Total Bilirubin 0.2mg/dL (0.2-1.0) Aspartate Amino Transf (AST/SGOT) 14U/L (15-37) Alanine Aminotransferase (ALT/SGPT) 17U/L (14-59) Alkaline Phosphatase 64U/L (46-116) Total Protein 6.6g/dL (6.4-8.2) Albumin 3.0g/dL (3.4-5.0) Albumin/Globulin Ratio 0.8 (1.0-1.7) Urine Collection Type Unknown Urine Color Yellow Urine Clarity Clear Urine pH 6.5 Urine Specific [place] 1.015 Urine Protein Negativemg/dL (NEG-TRACE) Urine Glucose (UA) Negativemg/dL (NEG) Urine Ketones (Stick) 40mg/dL (NEG) Urine Blood Negative (NEG) Urine Nitrite Negative (NEG) Urine Bilirubin Negative (NEG) Urine Urobilinogen Dipstick 0.2mg/dL (0.2 mg/dL) Urine Leukocyte Esterase Trace (NEG) Urine RBC 1-2/HPF (0-2) Urine WBC Occ/HPF (0-4) Urine Squamous Epithelial Cells Many/LPF Urine Bacteria 0/HPF (0-FEW) Micro BLOOD CULTURE Preliminary NO GROWTH AFTER 1 DAY Objective Assessment Fever Bandemia Abd pain - CT and U/S neg but no oral contrast PCN allergy Plan Plan of Care po Vanc and Rocephin Rotavirus pending C-diff and stool cults pending F/u labs Attending Co-Sign The patient was seen and interviewed as well as examined at the bedside. The chart was reviewed. The case was discussed. Agree with the plan of care. CHERELLE BAILEY APRN Jun 19, 2016 13:32 MANASA ARREAGA MD Jun 19, 2016 15:03
[2016-06-19 15:00] VITALS: BP 113/78
--- NOTE | 2016-06-19 17:34 | CONS ---
DATE OF CONSULTATION: 06/18/2016 PATIENT ROOM: 512. REQUESTING PHYSICIAN: Dr. Khan. REASON FOR CONSULTATION: Enteritis. HISTORY OF PRESENT ILLNESS: The patient is a pleasant 26-year-old female who has not traveled to [place] for over a year. She does have a history of previous appendectomy in the past and presented to the Emergency Room at [facility] back on 06/07/2016. At that time, she underwent a CT scan of the abdomen and pelvis as well as a pelvic ultrasound. Pelvic ultrasound did not show any acute process. She does have an IUD in place. Additionally, she underwent a CT scan without oral contrast shows some probable nonobstructive right renal stone elevations in the right and left kidney. She was given ciprofloxacin and Flagyl, which she took and states she felt better after discontinuing this for about 3-4 days, she again began to have abdominal pain and diarrhea and has not recurred to have fever of 102.4. She was given Rocephin in the Emergency Room and admitted to the hospital and is now on Cipro and Flagyl as well. She has some occasional headaches, no sinus issues, sore throat or cough. Denies any blood in her stool. No dysuria, frequency, urgency. No unusual vaginal discharge. PAST MEDICAL HISTORY: Positive for peptic ulcer disease with history of appendectomy, scoliosis, headaches and the above-mentioned episode of diarrhea. REVIEW OF SYSTEMS: Otherwise negative except for mentioned above. ALLERGIES: LISTED PENICILLIN, AMPICILLIN, WHICH CAUSES FACIAL SWELLING. SULFA SOCIAL HISTORY: She has dogs multilevel travel to [place] about a year or so ago. Denies any ill contacts. No tobacco. She is not working. FAMILY HISTORY: Positive for thyroid cancer. No abdominal history in the family. CURRENT MEDICATIONS: Include ciprofloxacin, Rocephin and metronidazole, Tylenol, Fentanyl, hydrocodone. Other meds are available, have been reviewed in the chart. PHYSICAL EXAMINATION: VITAL SIGNS: T-max is 102.4, currently 99.9, pulse 122, respirations 20, blood pressure 111/77, sating 98% on room air, appears alert, cooperative. CONSTITUTIONAL: In no acute distress. HEENT: Pupils are equal and reactive. Normal conjunctivae. Oral cavity, oropharynx is clear. Good dentition. NECK: Supple, no JVD. LUNGS: Clear to auscultation bilaterally. HEART: S1, S2. ABDOMEN: Obese, soft, some tenderness in the left side. No rebound, no guarding. EXTREMITIES: No clubbing, cyanosis or gross edema. SKIN: Without signs of rash. Warm to touch. NEUROLOGIC: She is nonfocal, moves all extremities. Affect is appropriate. LABORATORY DATA: White count 13.6, hemoglobin 15.7, platelets of 411, she had 82 segs, 7 bands. Glucose 107, ALT 21, AST 12, creatinine 0.7. Urinalysis, many squamous cells, 1-4 wbc's, leukocyte esterase and nitrite were negative. test negative. Urine drug screen was negative. Influenza screen was negative. Urine culture from the 30th is contaminated. Chest x-ray negative. CT scan reviewed in history of present illness. IMPRESSION: 1. Fever. 2. Bandemia. 3. Abdominal pain with CT scan and ultrasound negative, but no oral contrast was given. 4. PENICILLIN allergy. RECOMMENDATIONS: I did notice a somewhat of a stool like odor. It is possible that she could have C. diff and/or potentially rotavirus. At this point C. diff has been ordered already. I will order rotavirus. Discontinue the Cipro. Add p.o. vancomycin. We will follow up C. diff as well as cultures, stool cultures have been ordered. Follow up on labs and await further GI evaluation. This was discussed with family. Thank you for allowing us to participate in the patient's care. If you have any questions, please do not hesitate to contact me. LEILA YING MD DR: [email or web address] JOB#: [id number] / [id number]
[2016-06-19 19:00] VITALS: BP 108/66
[2016-06-19] MEDS: CEFTRIAXONE SODIUM 1 GM in IV NORMAL SALINE 50ML 50 ML IV SCH (20:05)
[2016-06-19] MEDS: TRAMADOL 50 MG TABLET. PO PRN (20:05)
[2016-06-19 23:00] VITALS: BP 106/72
[2016-06-20] MEDS: MORPHINE SULFATE 2 MG/ML DISP.SYRIN. IV PRN ×2 (00:45→04:15)
[2016-06-20 03:09] VITALS: BP 103/64
[2016-06-20] MEDS: HYDROCODONE/APAP 5/325MG TABLET. PO PRN (04:51)
[2016-06-20] MEDS: METRONIDAZOLE 500mg PREMIX 100 ML IV SCH (04:51)
[2016-06-20] MEDS: IV NORMAL SALINE 1000ML BAG 1,000 ML IV SCH (04:51)
[2016-06-20 07:00] VITALS: BP 114/75
[2016-06-20] MEDS: PANTOPRAZOLE 40 MG TABLET. PO SCH (08:28)
[2016-06-20] MEDS: VANCOMYCIN 125 MG/2.5 ML ORAL SOLUTION. PO SCH ×2 (08:29→13:40)
--- NOTE | 2016-06-20 08:36 | PDOC ---
G I PROGRESS NOTE Reason for Follow-up Abd pain/diarrhea Subjective Tolerating PO/pain controlled with PO analgesics Physical Exam Lungs clear CV S1 S2 ABD +BS, soft, mild tenderness Review of Relevant I have reviewed the following items yaneth (where applicable) has been applied. Labs Laboratory Tests Test 06/19/16 05:00 06/19/16 10:30 White Blood Count 6.3x10^3/uL (4.0-11.0) Red Blood Count 4.60x10^6/uL (3.50-5.40) Hemoglobin 13.0g/dL (12.0-15.5) Hematocrit 39.5% (36.0-47.0) Mean Corpuscular Volume 86fL (79-100) Mean Corpuscular Hemoglobin 28pg (25-35) Mean Corpuscular Hemoglobin Concent 33g/dL (31-37) Red Cell Distribution Width 13.7% (11.5-14.5) Platelet Count 326x10^3/uL (140-400) Neutrophils (%) (Auto) 32% (31-73) Lymphocytes (%) (Auto) 41% (24-48) Monocytes (%) (Auto) 15% (0-9) Eosinophils (%) (Auto) 10% (0-3) Basophils (%) (Auto) 2% (0-3) Neutrophils # (Auto) 2.0x10^3uL (1.8-7.7) Lymphocytes # (Auto) 2.6x10^3/uL (1.0-4.8) Monocytes # (Auto) 0.9x10^3/uL (0.0-1.1) Eosinophils # (Auto) 0.6x10^3/uL (0.0-0.7) Basophils # (Auto) 0.1x10^3/uL (0.0-0.2) Sodium Level 142mmol/L (136-145) Potassium Level 3.4mmol/L (3.5-5.1) Chloride Level 108mmol/L (98-107) Carbon Dioxide Level 25mmol/L (21-32) Anion Gap 9 (6-14) Blood Urea Nitrogen 6mg/dL (7-20) Creatinine 0.7mg/dL (0.6-1.0) Estimated GFR (Cockcroft-Gault) 100.4 BUN/Creatinine Ratio 9 (6-20) Glucose Level 91mg/dL (70-99) Calcium Level 8.7mg/dL (8.5-10.1) Total Bilirubin 0.2mg/dL (0.2-1.0) Aspartate Amino Transf (AST/SGOT) 14U/L (15-37) Alanine Aminotransferase (ALT/SGPT) 17U/L (14-59) Alkaline Phosphatase 64U/L (46-116) Total Protein 6.6g/dL (6.4-8.2) Albumin 3.0g/dL (3.4-5.0) Albumin/Globulin Ratio 0.8 (1.0-1.7) Urine Collection Type Unknown Urine Color Yellow Urine Clarity Clear Urine pH 6.5 Urine Specific [place] 1.015 Urine Protein Negativemg/dL (NEG-TRACE) Urine Glucose (UA) Negativemg/dL (NEG) Urine Ketones (Stick) 40mg/dL (NEG) Urine Blood Negative (NEG) Urine Nitrite Negative (NEG) Urine Bilirubin Negative (NEG) Urine Urobilinogen Dipstick 0.2mg/dL (0.2 mg/dL) Urine Leukocyte Esterase Trace (NEG) Urine RBC 1-2/HPF (0-2) Urine WBC Occ/HPF (0-4) Urine Squamous Epithelial Cells Many/LPF Urine Bacteria 0/HPF (0-FEW) Laboratory Tests Test 06/19/16 10:30 Urine Collection Type Unknown Urine Color Yellow Urine Clarity Clear Urine pH 6.5 Urine Specific [place] 1.015 Urine Protein Negativemg/dL (NEG-TRACE) Urine Glucose (UA) Negativemg/dL (NEG) Urine Ketones (Stick) 40mg/dL (NEG) Urine Blood Negative (NEG) Urine Nitrite Negative (NEG) Urine Bilirubin Negative (NEG) Urine Urobilinogen Dipstick 0.2mg/dL (0.2 mg/dL) Urine Leukocyte Esterase Trace (NEG) Urine RBC 1-2/HPF (0-2) Urine WBC Occ/HPF (0-4) Urine Squamous Epithelial Cells Many/LPF Urine Bacteria 0/HPF (0-FEW) Microbiology 06/18/16 Blood Culture - Preliminary, Resulted NO GROWTH AFTER 1 DAY Medications Current Medications Fentanyl Citrate 25 mcg 25 mcg PRN Q15MIN PRN IV PAIN GREATER THAN 3/10 Last administered on 2/9/17at 20:55; Start 06/17/16 at 18:15; Stop 06/18/16 at 18:14; Status DC Sodium Chloride (Iv Sodium Chloride 0.9% 1000ml Bag) 1,000 ml @ 1,000 mls/hr Q1H IV Last administered on 06/17/16 18:42; Start 06/17/16 at 18:12; Stop at 19:11; Status DC Ondansetron HCl (Zofran) 4 mg 1X ONCE IV Last administered on 06/17/16 18:42; Start 06/17/16 at 18:15; Stop 06/17/16 at 18:16; Status DC Acetaminophen (Tylenol) 1,000 mg 1X ONCE PO Last administered on 06/17/16 18: 43; Start 06/17/16 at 18:30; Stop 06/17/16 at 18:31; Status DC Iohexol (Omnipaque 300 Mg/ml) 75 ml 1X ONCE IV Last administered on 06/17/16 18:30; Start 06/17/16 at 18:30; Stop 06/17/16 at 18:31; Status DC Ondansetron HCl 4 mg 4 mg 1X ONCE IV Last administered on 06/17/16 19:54; Start 06/17/16 at 19:30; Stop 06/17/16 at 19:31; Status DC Sodium Chloride 1,000 ml @ 547.5 mls/ hr Q1H50M IV Last administered on 23:07; Start 06/17/16 at 19:27; Stop 06/17/16 at 23:27; Status DC Metronidazole 100 ml @ 100 mls/hr Q8HRS IV Last administered on 06/20/16 04: 51; Start 06/18/16 at 06:00 Metronidazole 100 ml @ 100 mls/hr 1X ONCE IV Last administered on 06/17/16 21 :35; Start 06/17/16 at 20:30; Stop 06/17/16 at 21:29; Status DC Ceftriaxone Sodium 50 ml @ 100 mls/hr 1X ONCE IV Last administered on 20:56; Start 06/17/16 at 20:30; Stop 06/17/16 at 20:59; Status DC Ceftriaxone Sodium/Sodium Chloride (Rocephin/Iv Sodium Chloride 0.9% 50ml) 50 ml @ 100 mls/hr Q24H IV Last administered on 06/19/16 20:05; Start 06/18/16 at 21:00 Morphine Sulfate 4 mg PRN Q15MIN PRN IV/SQ PAIN GREATER THAN 3/10 Last administered on 06/17/16 22:11; Start 06/17/16 at 21:45; Stop 06/18/16 at 21:44; Status DC Morphine Sulfate 2 mg 2 mg PRN Q2HR PRN IV SEVERE PAIN Last administered on 04:15; Start 06/17/16 at 22:30 Sodium Chloride (Iv Sodium Chloride 0.9% 1000ml Bag) 1,000 ml @ 75 mls/hr [id number] IV Last administered on 06/20/16 04:51; Start 06/17/16 at 22:45 Ondansetron HCl (Zofran) 4 mg PRN Q6HRS PRN IV NAUSEA/VOMITING Last administered on 06/17/16 22:43; Start 06/17/16 at 22:30 Acetaminophen/ Hydrocodone Bitart (Lortab 5/325) 1 tab PRN Q6HRS PRN PO MODERATE PAIN Last administered on 06/20/16 04:51; Start 06/17/16 at 22:45 Methocarbamol (Robaxin) 500 mg QID PO ; Start 06/18/16 at 09:00; Status Cancel Metronidazole (Flagyl) 500 mg BID PO Last administered on 06/18/16 08:42; Start 06/18/16 at 09:00; Stop 06/18/16 at 09:03; Status DC Tramadol HCl (Ultram) 50 mg Q6HRS PO Last administered on 06/17/16 23:41; Start 06/18/16 at 00:00; Stop 06/18/16 at 02:18; Status DC Tramadol HCl (Ultram) 50 mg PRN Q6HRS PRN PO PAIN; Start 06/17/16 at 22:45; Stop 06/18/16 at 02:18; Status DC Ciprofloxacin (Cipro) 500 mg BID PO Last administered on 06/18/16 08:42; Start 06/18/16 at 09:00; Stop 06/18/16 at 13:07; Status DC Ondansetron HCl (Zofran Odt) 4 mg PRN BID PRN PO NAUSEA/VOMITING Last administered on 06/18/16 10:30; Start 06/17/16 at 22:45 Tramadol HCl (Ultram) 50 mg PRN Q6HRS PRN PO MILD PAIN Last administered on 20:05; Start 06/18/16 at 02:30 Pantoprazole Sodium (Protonix) 40 mg DAILYAC PO Last administered on 06/20/16 08:28; Start 06/18/16 at 09:15 Acetaminophen (Tylenol) 650 mg PRN Q6HRS PRN PO MILD PAIN / TEMP Last administered on 06/18/16 10:23; Start 06/18/16 at 10:15 Vancomycin HCl 125 mg [id number] PO Last administered on 06/20/16 08:29; Start at 13:00 Potassium Chloride (Klor-Con) 40 meq 1X ONCE PO Last administered on 10:22; Start 06/19/16 at 09:30; Stop 06/19/16 at 09:31; Status DC Active Scripts Active Zofran (Ondansetron Hcl) 4 Mg Tablet 4 Mg PO BID PRN [place] 5-325 Tablet (Acetaminophen/Hydrocodone Bitart) 1 Each Tablet 1 Tab PO PRN Q6HRS PRN Flagyl (Metronidazole) 500 Mg Tablet 1 Tab PO BID Cipro (Ciprofloxacin Hcl) 500 Mg Tablet 1 Tab PO BID Ultram (Tramadol Hcl) 50 Mg Tablet 1 Tab PO Q6HRS Ultram (Tramadol Hcl) 50 Mg Tablet 50 Mg PO Q6H PRN Robaxin (Methocarbamol) 500 Mg Tablet 500 Mg PO QID Vitals/I & O Vital Sign - Last 24 Hours 06/19/16 06/19/16 06/19/16 06/19/16 10:23 11:00 12:13 15:00 Temp 97.9 98.9 97.9 98.9 Pulse 94 94 Resp 20 16 16 B/P 126/74 113/78 Pulse Ox 97 97 98 O2 Delivery Room Air Room Air Room Air Room Air 06/19/16 06/19/16 06/19/16 06/19/16 18:19 19:00 19:19 20:00 Temp 97.5 97.5 Pulse 102 Resp 20 B/P 108/66 Pulse Ox 98 97 98 O2 Delivery Room Air Room Air Room Air Room Air 06/19/16 06/19/16 06/19/16 06/19/16 20:05 20:05 21:05 23:00 Temp 97.7 97.7 Pulse 91 Resp 18 18 20 B/P 106/72 Pulse Ox 98 98 98 98 O2 Delivery Room Air Room Air Room Air Room Air 06/20/16 06/20/16 06/20/16 06/20/16 00:45 03:09 04:15 04:50 Temp 97.9 97.9 Pulse 95 Resp 18 20 18 18 B/P 103/64 Pulse Ox 98 98 98 98 O2 Delivery Room Air Room Air Room Air Room Air 06/20/16 04:51 Resp 18 Pulse Ox 98 O2 Delivery Room Air Intake and Output 06/19/16 06/19/16 06/20/16 15:00 23:00 07:00 Intake Total 120 ml 1400 ml Balance 120 ml 1400 ml Problem List Problems Medical Problems: (1) Abdominal pain Status: Acute (2) Hyperpyrexia Status: Acute (3) N&V (nausea and vomiting) Status: Acute (4) Tachycardia Status: Acute Assessment Abd pain- with diarrhea, slow improvement, infectious enteritis leads differential. Continue with antibiotics when released, SB series/colonoscopy if symptoms don't resolve, disposition plans per primary PROPFERNANDO EL MD Jun 20, 2016 08:36
[2016-06-20 11:00] VITALS: BP 106/69
--- NOTE | 2016-06-20 11:52 | PDOC ---
Infectious Disease Note Subjective Subjective Hoping to go home soon No fever last 24 hours Feeling better, less abdominal pain Denies N/V/D ROS ROS CV: Denies chest pain RESP: Denies shortness of air, cough Vital Sign Vital Signs Vital Signs Date Time Temp Pulse Resp B/P Pulse Ox O2 Delivery O2 Flow Rate FiO2 06/20/16 08:00 Room Air 06/20/16 07:00 97.5 87 16 114/75 97 97.5 Physical Exam PHYSICAL EXAM GENERAL: Lying down, nursing 7-month old. HEENT: OC/OP clear LUNGS: Clear HEART: S1S2, no gallop, no murmur ABD: Soft, NT, BS present EXT: No edema, no cyanosis [employer]ORAGE WORK[employer]: Alert, oriented x 3, no focal neurologic deficit SKIN: No rash IV: ok Labs Micro BLOOD CULTURE NGTD Objective Assessment Fever, resolved Bandemia Abd pain - CT and U/S neg but no oral contrast, better PCN allergy Plan Plan of Care po Vanc, Rocephin and Flagyl Rotavirus pending C-diff and stool cults pending Attending Co-Sign The patient was seen and interviewed as well as examined at the bedside. The chart was reviewed. The case was discussed. Agree with the plan of care. CHERELLE BAILEY APRN Jun 20, 2016 11:52 MANASA ARREAGA MD Jun 20, 2016 13:34
[2016-06-20] MEDS: CEFTRIAXONE SODIUM 1 GM in IV NORMAL SALINE 50ML 50 ML IV SCH (13:41)
--- NOTE | 2016-06-20 14:26 | PDOC ---
PROGRESS NOTES Chief Complaint Chief Complaint 1. Infectious colitis 2. Fever 3. Leukocytosis 4. Abdominal pain with dehydration 5. Myalgia History of Present Illness History of Present Illness Patient awake, alert, and sitting up in bed this AM. Pt states that she is feeling "much better" and would like to go home. and little daughter present and at bedside. Pt denies any current CP or SOB. All questions and concerns answered and addressed. Vitals Vitals Vital Signs Date Time Temp Pulse Resp B/P Pulse Ox O2 Delivery O2 Flow Rate FiO2 06/20/16 11:00 98.4 99 16 106/69 96 Room Air 98.4 Physical Exam General: Alert, Oriented X3, Cooperative, No acute distress Heart: Regular rate, Normal S1, Normal S2, No murmurs Lungs: Clear, Crackles Abdomen: Normal bowel sounds, Soft, No tenderness Extremities: No clubbing, No cyanosis, No edema Skin: No rashes, No breakdown, No significant lesion Review of Systems Review of Systems Patient complaint of mild weakness Patient complaint of hunger Assessment and Plan Assessmemt and Plan Problems Medical Problems: (1) Abdominal pain Status: Acute (2) Hyperpyrexia Status: Acute (3) N&V (nausea and vomiting) Status: Acute (4) Tachycardia Status: Acute Assessment: 1. Infectious colitis 2. Fever 3. Leukocytosis 4. Abdominal pain with dehydration 5. Myalgia Plan: Continue to monitor the patient per floor protocol Continue daily labs- CBC, BMP, BUN, and Cr Daily PTOT CESAR RN Appreciate GI and ID and Surgery input and recommendations Switch IV Abx to PO Possible DC this afternoon Problems: Comment Review of Relevant I have reviewed the following items yaneth (where applicable) has been applied. Labs Laboratory Tests Test 06/19/16 05:00 06/19/16 10:30 White Blood Count 6.3x10^3/uL (4.0-11.0) Red Blood Count 4.60x10^6/uL (3.50-5.40) Hemoglobin 13.0g/dL (12.0-15.5) Hematocrit 39.5% (36.0-47.0) Mean Corpuscular Volume 86fL (79-100) Mean Corpuscular Hemoglobin 28pg (25-35) Mean Corpuscular Hemoglobin Concent 33g/dL (31-37) Red Cell Distribution Width 13.7% (11.5-14.5) Platelet Count 326x10^3/uL (140-400) Neutrophils (%) (Auto) 32% (31-73) Lymphocytes (%) (Auto) 41% (24-48) Monocytes (%) (Auto) 15% (0-9) Eosinophils (%) (Auto) 10% (0-3) Basophils (%) (Auto) 2% (0-3) Neutrophils # (Auto) 2.0x10^3uL (1.8-7.7) Lymphocytes # (Auto) 2.6x10^3/uL (1.0-4.8) Monocytes # (Auto) 0.9x10^3/uL (0.0-1.1) Eosinophils # (Auto) 0.6x10^3/uL (0.0-0.7) Basophils # (Auto) 0.1x10^3/uL (0.0-0.2) Sodium Level 142mmol/L (136-145) Potassium Level 3.4mmol/L (3.5-5.1) Chloride Level 108mmol/L (98-107) Carbon Dioxide Level 25mmol/L (21-32) Anion Gap 9 (6-14) Blood Urea Nitrogen 6mg/dL (7-20) Creatinine 0.7mg/dL (0.6-1.0) Estimated GFR (Cockcroft-Gault) 100.4 BUN/Creatinine Ratio 9 (6-20) Glucose Level 91mg/dL (70-99) Calcium Level 8.7mg/dL (8.5-10.1) Total Bilirubin 0.2mg/dL (0.2-1.0) Aspartate Amino Transf (AST/SGOT) 14U/L (15-37) Alanine Aminotransferase (ALT/SGPT) 17U/L (14-59) Alkaline Phosphatase 64U/L (46-116) Total Protein 6.6g/dL (6.4-8.2) Albumin 3.0g/dL (3.4-5.0) Albumin/Globulin Ratio 0.8 (1.0-1.7) Urine Collection Type Unknown Urine Color Yellow Urine Clarity Clear Urine pH 6.5 Urine Specific [place] 1.015 Urine Protein Negativemg/dL (NEG-TRACE) Urine Glucose (UA) Negativemg/dL (NEG) Urine Ketones (Stick) 40mg/dL (NEG) Urine Blood Negative (NEG) Urine Nitrite Negative (NEG) Urine Bilirubin Negative (NEG) Urine Urobilinogen Dipstick 0.2mg/dL (0.2 mg/dL) Urine Leukocyte Esterase Trace (NEG) Urine RBC 1-2/HPF (0-2) Urine WBC Occ/HPF (0-4) Urine Squamous Epithelial Cells Many/LPF Urine Bacteria 0/HPF (0-FEW) Microbiology 06/18/16 Blood Culture - Preliminary, Resulted NO GROWTH AFTER 1 DAY 06/19/16 Urine Culture - Preliminary, Resulted 06/19/16 Urine Culture Result 1 ([facility]ITCH) - Preliminary, Resulted Medications Current Medications Fentanyl Citrate 25 mcg 25 mcg PRN Q15MIN PRN IV PAIN GREATER THAN 3/10 Last administered on 06/17/16 20:55; Start 06/17/16 at 18:15; Stop 06/18/16 at 18:14; Status DC Sodium Chloride (Iv Sodium Chloride 0.9% 1000ml Bag) 1,000 ml @ 1,000 mls/hr Q1H IV Last administered on 06/17/16 18:42; Start 06/17/16 at 18:12; Stop at 19:11; Status DC Ondansetron HCl (Zofran) 4 mg 1X ONCE IV Last administered on 06/17/16 18:42; Start 06/17/16 at 18:15; Stop 06/17/16 at 18:16; Status DC Acetaminophen (Tylenol) 1,000 mg 1X ONCE PO Last administered on 06/17/16 18: 43; Start 06/17/16 at 18:30; Stop 06/17/16 at 18:31; Status DC Iohexol (Omnipaque 300 Mg/ml) 75 ml 1X ONCE IV Last administered on 06/17/16 18:30; Start 06/17/16 at 18:30; Stop 06/17/16 at 18:31; Status DC Ondansetron HCl 4 mg 4 mg 1X ONCE IV Last administered on 06/17/16 19:54; Start 06/17/16 at 19:30; Stop 06/17/16 at 19:31; Status DC Sodium Chloride 1,000 ml @ 547.5 mls/ hr Q1H50M IV Last administered on 23:07; Start 06/17/16 at 19:27; Stop 06/17/16 at 23:27; Status DC Metronidazole 100 ml @ 100 mls/hr Q8HRS IV Last administered on 06/20/16 04: 51; Start 06/18/16 at 06:00 Metronidazole 100 ml @ 100 mls/hr 1X ONCE IV Last administered on 06/17/16 21 :35; Start 06/17/16 at 20:30; Stop 06/17/16 at 21:29; Status DC Ceftriaxone Sodium 50 ml @ 100 mls/hr 1X ONCE IV Last administered on 20:56; Start 06/17/16 at 20:30; Stop 06/17/16 at 20:59; Status DC Ceftriaxone Sodium/Sodium Chloride (Rocephin/Iv Sodium Chloride 0.9% 50ml) 50 ml @ 100 mls/hr Q24H IV Last administered on 06/20/16 13:41; Start 06/18/16 at 21:00 Morphine Sulfate 4 mg PRN Q15MIN PRN IV/SQ PAIN GREATER THAN 3/10 Last administered on 06/17/16 22:11; Start 06/17/16 at 21:45; Stop 06/18/16 at 21:44; Status DC Morphine Sulfate 2 mg 2 mg PRN Q2HR PRN IV SEVERE PAIN Last administered on 04:15; Start 06/17/16 at 22:30 Sodium Chloride (Iv Sodium Chloride 0.9% 1000ml Bag) 1,000 ml @ 75 mls/hr [id number] IV Last administered on 06/20/16 04:51; Start 06/17/16 at 22:45 Ondansetron HCl (Zofran) 4 mg PRN Q6HRS PRN IV NAUSEA/VOMITING Last administered on 06/17/16 22:43; Start 06/17/16 at 22:30 Acetaminophen/ Hydrocodone Bitart (Lortab 5/325) 1 tab PRN Q6HRS PRN PO MODERATE PAIN Last administered on 06/20/16 04:51; Start 06/17/16 at 22:45 Methocarbamol (Robaxin) 500 mg QID PO ; Start 06/18/16 at 09:00; Status Cancel Metronidazole (Flagyl) 500 mg BID PO Last administered on 06/18/16 08:42; Start 06/18/16 at 09:00; Stop 06/18/16 at 09:03; Status DC Tramadol HCl (Ultram) 50 mg Q6HRS PO Last administered on 06/17/16 23:41; Start 06/18/16 at 00:00; Stop 06/18/16 at 02:18; Status DC Tramadol HCl (Ultram) 50 mg PRN Q6HRS PRN PO PAIN; Start 06/17/16 at 22:45; Stop 06/18/16 at 02:18; Status DC Ciprofloxacin (Cipro) 500 mg BID PO Last administered on 06/18/16 08:42; Start 06/18/16 at 09:00; Stop 06/18/16 at 13:07; Status DC Ondansetron HCl (Zofran Odt) 4 mg PRN BID PRN PO NAUSEA/VOMITING Last administered on 06/18/16 10:30; Start 06/17/16 at 22:45 Tramadol HCl (Ultram) 50 mg PRN Q6HRS PRN PO MILD PAIN Last administered on 20:05; Start 06/18/16 at 02:30 Pantoprazole Sodium (Protonix) 40 mg DAILYAC PO Last administered on 06/20/16 08:28; Start 06/18/16 at 09:15 Acetaminophen (Tylenol) 650 mg PRN Q6HRS PRN PO MILD PAIN / TEMP Last administered on 06/18/16 10:23; Start 06/18/16 at 10:15 Vancomycin HCl 125 mg [id number] PO Last administered on 06/20/16 13:40; Start at 13:00 Potassium Chloride (Klor-Con) 40 meq 1X ONCE PO Last administered on 10:22; Start 06/19/16 at 09:30; Stop 06/19/16 at 09:31; Status DC Active Scripts Active Zofran (Ondansetron Hcl) 4 Mg Tablet 4 Mg PO BID PRN [place] 5-325 Tablet (Acetaminophen/Hydrocodone Bitart) 1 Each Tablet 1 Tab PO PRN Q6HRS PRN Flagyl (Metronidazole) 500 Mg Tablet 1 Tab PO BID Cipro (Ciprofloxacin Hcl) 500 Mg Tablet 1 Tab PO BID Ultram (Tramadol Hcl) 50 Mg Tablet 1 Tab PO Q6HRS Ultram (Tramadol Hcl) 50 Mg Tablet 50 Mg PO Q6H PRN Robaxin (Methocarbamol) 500 Mg Tablet 500 Mg PO QID Vitals/I & O Vital Sign - Last 24 Hours 06/19/16 06/19/16 06/19/16 06/19/16 15:00 18:19 19:00 19:19 Temp 98.9 97.5 98.9 97.5 Pulse 94 102 Resp 16 20 B/P 113/78 108/66 Pulse Ox 98 98 97 98 O2 Delivery Room Air Room Air Room Air Room Air 06/19/16 06/19/16 06/19/16 06/19/16 20:00 20:05 20:05 21:05 Resp 18 18 Pulse Ox 98 98 98 O2 Delivery Room Air Room Air Room Air Room Air 06/19/16 06/20/16 06/20/16 06/20/16 23:00 00:45 03:09 04:15 Temp 97.7 97.9 97.7 97.9 Pulse 91 95 Resp 20 18 20 18 B/P 106/72 103/64 Pulse Ox 98 98 98 98 O2 Delivery Room Air Room Air Room Air Room Air 06/20/16 06/20/16 06/20/16 06/20/16 04:50 04:51 07:00 08:00 Temp 97.5 97.5 Pulse 87 Resp 18 18 16 B/P 114/75 Pulse Ox 98 98 97 O2 Delivery Room Air Room Air Room Air 06/20/16 11:00 Temp 98.4 98.4 Pulse 99 Resp 16 B/P 106/69 Pulse Ox 96 O2 Delivery Room Air Intake and Output 06/19/16 06/19/16 06/20/16 15:00 23:00 07:00 Intake Total 120 ml 1400 ml Balance 120 ml 1400 ml DELL FATIMA III DO Jun 20, 2016 14:26
== END 2016-06-20 14:41 | disposition home or self-care (01) | DRG 872 ==
LOC: ER 16:30 → 5 NORTH 20:12
PROVIDERS: ADMIT Internal Medicine; ATTEND Internal Medicine
DX: A41.9 Sepsis, unspecified organism (principal); A09 Infectious gastroenteritis and colitis, unspecified; F32.9 Major depressive disorder, single episode, unspecified; F41.9 Anxiety disorder, unspecified; K21.9 Gastro-esophageal reflux disease without esophagitis; E86.0 Dehydration; E87.6 Hypokalemia; M41.9 Scoliosis, unspecified; M79.1 Myalgia; N20.0 Calculus of kidney; Z80.8 Family history of malignant neoplasm of other organs or systems; Z87.11 Personal history of peptic ulcer disease; Z88.1 Allergy status to other antibiotic agents; Z88.0 Allergy status to penicillin; Z88.2 Allergy status to sulfonamides; Z82.49 Family history of ischemic heart disease and other diseases of the circulatory system; Z79.899 Other long term (current) drug therapy; Z90.49 Acquired absence of other specified parts of digestive tract; Z97.5 Presence of (intrauterine) contraceptive device
CPT/HCPCS: 36415; 71010; 74177; 80053; 81001; 81025; 83605; 83690; 85007; 85027; 87040; 87086; 87804; 93005; 96361; 96365; 96368; 96375; 96376; G0481; J0690; J0696; J2270; J2405; J3010; J3490; J7030; Q0162; Q9967; 99285-25

== ENCOUNTER 2018-03-20 13:40 | Observation (INO) | payer BC ==
[2017-03-07 20:32] VITALS: BP 124/83
[~2018-03-20 13:40] MED LIST changes: -TRAM-29 PO; +TRAM-48 PO
[2018-03-20] MEDS ORDERED: IV RINGERS,LACTATED 1000ML 1,000 ML IV SCH (14:20)
[2018-03-20] MEDS ORDERED: BUTORPHANOL 2 MG/ML VIAL. IV ONE (14:30)
[2018-03-20 15:01] LABS: BILIRUBIN,URINE NEGATIVE (NEG); CLARITY,URINE CLEAR; COLOR,URINE YELLOW; NITRITE,URINE NEGATIVE (NEG); PH,URINE 6.5; PROTEIN,URINE NEGATIVE (NEG-TRACE); UROBILINOGEN,URINE 0.2 mg/dL (0.2 mg/dL)
[2018-03-20 15:08] LABS: BARBITURATES NEG (NEG); BENZODIAZEPINES NEG (NEG); CANNABINOIDS NEG (NEG); COCAINE NEG (NEG); METHADONE NEG (NEG); OPIATES POS (NEG); PHENCYCLIDINE NEG (NEG)
[2018-03-20] MEDS ORDERED: BUTORPHANOL 2 MG/ML VIAL. IM ONE (15:15)
[2018-03-20 15:16] LABS: SQUAMOUS EPITHELIAL CELL,UR MANY /LPF
[2018-03-20 15:17] LABS: BACTERIA,URINE MANY /HPF (0-FEW); RBC,URINE 0 /HPF (0-2); WBC,URINE >40 /HPF (0-4)
[2018-03-20 15:25] LABS: AMPHETAMINE/METHAMPHETAMINE NEG (NEG)
[2018-03-20] MEDS ORDERED: BETAMET ACET&NA PHOS 30 MG/5 ML VIAL. IM ONE (15:30)
[2018-03-20 15:53] LABS: BASO # 0.1 x10^3/uL (0.0-0.2); BASO % 1 % (0-3); EOS # 0.3 x10^3/uL (0.0-0.7); EOS % 2 % (0-3); HEMATOCRIT 30.1 % (36.0-47.0); HEMOGLOBIN 10.1 g/dL (12.0-15.5); LYMPH # 3.2 x10^3/uL (1.0-4.8); LYMPH % 25 % (24-48); MEAN CORPUSCULAR HEMOGLOBIN 25 pg (25-35); MEAN CORPUSCULAR HGB CONC 34 g/dL (31-37); MEAN CORPUSCULAR VOLUME 74 fL (79-100); MONO % 8 % (0-9); NEUT # 8.2 x10^3uL (1.8-7.7); NEUT % 64 % (31-73); PLATELET COUNT 476 x10^3/uL (140-400); RED BLOOD COUNT 4.06 x10^6/uL (3.50-5.40); RED CELL DISTRIBUTION WIDTH 17.4 % (11.5-14.5); WHITE BLOOD COUNT 12.8 x10^3/uL (4.0-11.0)
[2018-03-20 16:05] LABS: CALCIUM 8.7 mg/dL (8.5-10.1); CREATININE 0.6 mg/dL (0.6-1.0); GFR 118.2; POTASSIUM 4.5 mmol/L (3.5-5.1)
[2018-03-20 16:11] LABS: ALBUMIN 2.1 g/dL (3.4-5.0); ALBUMIN/GLOBULIN RATIO 0.6 (1.0-1.7); TOTAL BILIRUBIN 0.3 mg/dL (0.2-1.0); TOTAL PROTEIN 5.9 g/dL (6.4-8.2)
[2018-03-20 16:27] LABS: % BANDS 6 % (0-9); % BASOS 2 % (0-3); % EOS 4 % (0-5); % LYMPHS 26 % (24-48); % MONOS 7 % (0-10); % SEGS 55 % (35-66); NUCLEATED RBC 1; PLT ESTIMATE INCREASED (ADEQUATE)
[2018-03-20 16:28] LABS: ANISOCYTOSIS SLIGHT; HYPOCHROMIA SLIGHT; MICROCYTOSIS SLIGHT; POIKILOCYTOSIS SLIGHT
[2018-03-20 16:36] LABS: SPHEROCYTES OCC
== END 2018-03-20 17:45 | disposition home or self-care (01) ==
LOC: 3 SO LND 13:40
PROVIDERS: ADMIT Obstetrics & Gynecology; ATTEND Obstetrics & Gynecology
DX: O99.89 Other specified diseases and conditions complicating pregnancy, childbirth and the puerperium (principal); O26.893 Other specified pregnancy related conditions, third trimester; M48.061 Spinal stenosis, lumbar region without neurogenic claudication; R10.2 Pelvic and perineal pain; Z79.899 Other long term (current) drug therapy; Z3A.31 31 weeks gestation of pregnancy
CPT/HCPCS: 36415; 80053; 80307; 81001; 82731; 85007; 85025; 86592; 87086; 96372; G0378; G0379; J0702; J7120